=== PATIENT | female | born 1935 | race Caucasian/White ===

== ENCOUNTER → 2017-12-15 00:52 | Outpatient (CLI) | payer MEDICARE, OTHER, SELFPAY ==
[2017-12-15 13:07] LABS: INR 2.3 (1.0-3.5); Prothrombin Time 21.5 sec (9.3-10.8)
== END ==
PROVIDERS: PCP General Practice; Visit Provider General Practice
DX: I82.221 Chronic embolism and thrombosis of inferior vena cava (principal); Z79.01 Long term (current) use of anticoagulants
CPT/HCPCS: 36415; 85610

== ENCOUNTER → 2018-01-03 01:46 | Outpatient (CLI) | payer MEDICARE, OTHER, SELFPAY ==
[2018-01-03 13:05] LABS: Anion Gap 8.7 mmol/L (3-11); BUN 19 mg/dL (7-18); CO2 28.3 mmol/L (21.0-32.0); CREATININE 1.16 mg/dL (0.55-1.02); Chloride 102 mmol/L (98-107); Estimated GFR 44.73 (mL/min/1.73m2); Glucose 95 mg/dL (70-100); Potassium 4.2 mmol/L (3.5-5.1); Sodium 139 mmol/L (136-145)
== END ==
PROVIDERS: PCP General Practice; Visit Provider General Practice
DX: R73.03 Prediabetes (principal)
CPT/HCPCS: 36415; 80051; 82947; 84520; 82565

== ENCOUNTER → 2018-01-04 01:33 | Outpatient (CLI) | payer MEDICARE, OTHER, SELFPAY ==
--- NOTE | 2018-01-04 14:54 | DI.REPORT_ITS ---
SYMPTOMS/DIAGNOSIS: SCREENING, Z12.31 MAMMOGRAM: Mammograms were interpreted according to the usual protocol including computer analysis with CAD system, tomosynthesis and C view imaging. The breasts are of moderate density with fairly symmetrical distribution of fibroglandular tissue. No dominant mass or clumped microcalcification is identified in either breast. The current examination is compared with previous examinations including June 2015 and there has been no gross interval change in appearance in comparison with the previous studies. CONCLUSION: No specific evidence of malignancy at this time. Routine screening examinations are suggested at yearly intervals due to the family history of breast carcinoma. Category I. Breast density B. MQSA ASSESSMENT OF FINDINGS: Negative. Category 1. Patient will receive a letter notifying them of these results. BI-RADS category B. There are scattered areas of fibroglandular density.
== END ==
PROVIDERS: PCP General Practice; Visit Provider General Practice
DX: Z12.31 Encounter for screening mammogram for malignant neoplasm of breast (principal); Z80.3 Family history of malignant neoplasm of breast
CPT/HCPCS: 77063; 77067

== ENCOUNTER 2018-01-29 01:30 | Outpatient (CLI) | payer MEDICARE, OTHER, SELFPAY ==
[2018-01-29 12:38] LABS: Prothrombin Time 19.5 sec (9.3-10.8)
== END 2018-01-29 01:50 ==
PROVIDERS: PCP General Practice; Visit Provider General Practice
DX: I82.221 Chronic embolism and thrombosis of inferior vena cava (principal); Z79.01 Long term (current) use of anticoagulants
CPT/HCPCS: 36415; 85610

== ENCOUNTER 2018-03-08 01:00 | Outpatient (CLI) | payer MEDICARE, OTHER, SELFPAY ==
[2018-03-08 10:54] LABS: INR 1.7 (1.0-3.5); Prothrombin Time 16.1 sec (9.3-10.8)
== END 2018-03-08 01:20 ==
PROVIDERS: PCP General Practice; Visit Provider General Practice
DX: I82.221 Chronic embolism and thrombosis of inferior vena cava (principal); Z79.01 Long term (current) use of anticoagulants
CPT/HCPCS: 36415; 85610

== ENCOUNTER 2018-03-22 01:06 | Outpatient (CLI) | payer MEDICARE, OTHER, SELFPAY ==
[2018-03-22 13:08] LABS: INR 2.2 (1.0-3.5); Prothrombin Time 21.1 sec (9.3-10.8)
== END 2018-03-22 01:26 ==
PROVIDERS: PCP General Practice; Visit Provider General Practice
DX: I82.221 Chronic embolism and thrombosis of inferior vena cava (principal); Z79.01 Long term (current) use of anticoagulants
CPT/HCPCS: 36415; 85610

== ENCOUNTER 2018-04-26 02:04 | Outpatient (CLI) | payer MEDICARE, OTHER, SELFPAY ==
[2018-04-26 13:02] LABS: Prothrombin Time 20.2 sec (9.3-10.8)
[2018-04-26 13:06] LABS: INR 2.1 (1.0-3.5)
== END 2018-04-26 02:24 ==
PROVIDERS: PCP General Practice; Visit Provider General Practice
DX: I82.221 Chronic embolism and thrombosis of inferior vena cava (principal); Z79.01 Long term (current) use of anticoagulants
CPT/HCPCS: 36415; 85610

== ENCOUNTER 2018-05-29 02:03 | Outpatient (CLI) | payer MEDICARE, OTHER, SELFPAY ==
[2018-05-29 16:41] LABS: INR 1.4 (0.9-1.1); Prothrombin Time 14.5 sec (9.3-11.0)
== END 2018-05-29 02:23 ==
PROVIDERS: PCP General Practice; Visit Provider General Practice
DX: I82.221 Chronic embolism and thrombosis of inferior vena cava (principal); Z79.01 Long term (current) use of anticoagulants
CPT/HCPCS: 36415; 85610

== ENCOUNTER 2018-06-25 02:48 | Outpatient (CLI) | payer MEDICARE, OTHER, SELFPAY ==
[2018-06-25 12:37] LABS: INR 2.3 (0.9-1.1); Prothrombin Time 22.8 sec (9.3-11.0)
== END 2018-06-25 03:08 ==
PROVIDERS: PCP General Practice; Visit Provider General Practice
DX: I82.221 Chronic embolism and thrombosis of inferior vena cava (principal); Z79.01 Long term (current) use of anticoagulants
CPT/HCPCS: 36415; 85610

== ENCOUNTER 2018-07-25 03:05 | Outpatient (CLI) | payer MEDICARE, OTHER, SELFPAY ==
[2018-07-25 13:53] LABS: INR 1.9 (0.9-1.1); Prothrombin Time 19.2 sec (9.3-11.0)
== END 2018-07-25 03:25 ==
PROVIDERS: PCP General Practice; Visit Provider General Practice
DX: I82.221 Chronic embolism and thrombosis of inferior vena cava (principal); Z79.01 Long term (current) use of anticoagulants
CPT/HCPCS: 36415; 85610

== ENCOUNTER 2018-08-10 14:42 | Outpatient (REF) | payer MEDICARE, OTHER, SELFPAY ==
--- NOTE | 2018-08-10 12:45 | SKI_PTH ---
PATIENT: Cheryl Samuels LOC: [facility] U#:[id number] AGE/SX: 82/F ROOM: RE08/10/[address]: Sp Valles : 1935 BED: DIS: 08/10/2018 SPEC #: [id number] RECD: 08/10/18 17:46 STATUS: JOSEPH REPastor #: [id number] KIN: 08/10/18 12:[address]: Sp Valles DEPT: Surgical Specimen RECD BY: Rita Felder Tissues: 1 - SKIN BIOPSY(SHAVE/PUNCH) Procedures: SKIN LEVEL 4 Comments: [id number]
== END 2018-08-10 15:02 ==
LOC: LBN 14:42
PROVIDERS: PCP General Practice; Visit Provider General Practice
DX: L13.8 Other specified bullous disorders (principal); L30.8 Other specified dermatitis
CPT/HCPCS: 88305

== ENCOUNTER 2018-08-29 00:51 | Outpatient (CLI) | payer MEDICARE, OTHER, SELFPAY ==
[2018-08-29 12:44] LABS: INR 2.4 (0.9-1.1); Prothrombin Time 24.2 sec (9.3-11.0)
== END 2018-08-29 01:11 ==
PROVIDERS: PCP General Practice; Visit Provider General Practice
DX: I82.221 Chronic embolism and thrombosis of inferior vena cava (principal); Z79.01 Long term (current) use of anticoagulants
CPT/HCPCS: 36415; 85610

== ENCOUNTER 2018-09-28 02:38 | Outpatient (CLI) | payer MEDICARE, OTHER, SELFPAY ==
[2018-09-28 12:42] LABS: Prothrombin Time 20.6 sec (9.3-11.0)
== END 2018-09-28 02:58 ==
PROVIDERS: PCP General Practice; Visit Provider General Practice
DX: I82.221 Chronic embolism and thrombosis of inferior vena cava (principal); Z79.01 Long term (current) use of anticoagulants
CPT/HCPCS: 36415; 85610

== ENCOUNTER 2018-11-09 02:03 | Outpatient (CLI) | payer MEDICARE, OTHER, SELFPAY ==
[2018-11-09 13:05] LABS: INR 1.6 (0.9-1.1); Prothrombin Time 15.9 sec (9.3-11.0)
== END 2018-11-09 02:23 ==
PROVIDERS: PCP General Practice; Visit Provider General Practice
DX: I82.221 Chronic embolism and thrombosis of inferior vena cava (principal); Z79.01 Long term (current) use of anticoagulants
CPT/HCPCS: 36415; 85610

== ENCOUNTER 2018-12-05 01:44 | Outpatient (CLI) | payer MEDICARE, OTHER, SELFPAY ==
[2018-12-05 12:59] LABS: INR 1.9 (0.9-1.1)
== END 2018-12-05 02:04 ==
PROVIDERS: PCP General Practice; Visit Provider General Practice
DX: I82.91 Chronic embolism and thrombosis of unspecified vein (principal); Z79.01 Long term (current) use of anticoagulants
CPT/HCPCS: 36415; 85610

== ENCOUNTER 2018-12-20 02:19 | Outpatient (CLI) | payer MEDICARE, OTHER, SELFPAY ==
[2018-12-20 13:28] LABS: INR 1.7 (0.9-1.1); Prothrombin Time 16.8 sec (9.3-11.0)
== END 2018-12-20 02:39 ==
PROVIDERS: PCP General Practice; Visit Provider General Practice
DX: I82.221 Chronic embolism and thrombosis of inferior vena cava (principal); Z79.01 Long term (current) use of anticoagulants
CPT/HCPCS: 36415; 85610

== ENCOUNTER 2019-01-03 02:24 | Outpatient (CLI) | payer MEDICARE, OTHER, SELFPAY ==
[2019-01-03 13:18] LABS: INR 2.9 (0.9-1.1); Prothrombin Time 29.6 sec (9.3-11.0)
== END 2019-01-03 02:44 ==
PROVIDERS: PCP General Practice; Visit Provider General Practice
DX: I82.221 Chronic embolism and thrombosis of inferior vena cava (principal); Z79.01 Long term (current) use of anticoagulants
CPT/HCPCS: 36415; 85610

== ENCOUNTER 2019-02-08 02:40 | Outpatient (CLI) | payer MEDICARE, OTHER, SELFPAY ==
[2019-02-08 13:12] LABS: INR 2.9 (0.9-1.1); Prothrombin Time 28.5 sec (9.3-11.0)
== END 2019-02-08 03:00 ==
PROVIDERS: PCP General Practice; Visit Provider General Practice
DX: I82.221 Chronic embolism and thrombosis of inferior vena cava (principal); Z79.01 Long term (current) use of anticoagulants
CPT/HCPCS: 36415; 85610

== ENCOUNTER 2019-03-07 01:46 | Outpatient (CLI) | payer MEDICARE, OTHER, SELFPAY ==
[2019-03-07 14:21] LABS: INR 2.5 (0.9-1.1)
== END 2019-03-07 02:06 ==
PROVIDERS: PCP Nurse Practitioner; Visit Provider General Practice
DX: I82.221 Chronic embolism and thrombosis of inferior vena cava (principal); Z79.01 Long term (current) use of anticoagulants
CPT/HCPCS: 36415; 85610

== ENCOUNTER 2019-04-03 00:37 | Outpatient (CLI) | payer MEDICARE, OTHER, SELFPAY ==
--- NOTE | 2019-04-03 13:04 | DI.MAMMO_ITS ---
EXAM: MG MAMMO SCREENING CLINICAL HISTORY: SCREENING, TECHNIQUE: Mammograms were interpreted according to the usual protocol including computer analysis w [employer] CAD system, tomosynthesis and C-view imaging. COMPARISON: [id number] FINDINGS: The breasts are composed of scattered fibroglandular densities, breast density category B. There are no suspicious masses or suspicious microcalcifications. There has been no interval change when ralph red with the previous examinations. IMPRESSION: Category 1, negative mammogram. Yearly screening mammography is recommended. BI-RADS Cat 1 - Negative Breast Density - Category B - Scattered areas of fibroglandular density
== END 2019-04-03 00:57 ==
PROVIDERS: PCP Nurse Practitioner; Visit Provider General Practice
DX: Z12.31 Encounter for screening mammogram for malignant neoplasm of breast (principal)
CPT/HCPCS: 77063; 77067

== ENCOUNTER 2019-04-03 01:30 | Outpatient (CLI) | payer MEDICARE, OTHER, SELFPAY ==
[2019-04-03 14:04] LABS: INR 2.4 (0.9-1.1); Prothrombin Time 23.4 sec (9.3-11.0)
[2019-04-03 14:59] LABS: Anion Gap 6.9 mmol/L (3-11); BUN 19 mg/dL (7-18); CO2 31.1 mmol/L (21.0-32.0); CREATININE 0.99 mg/dL (0.55-1.02); Chloride 103 mmol/L (98-107); Estimated GFR 53.57 (mL/min/1.73m2); Potassium 3.8 mmol/L (3.5-5.1); Sodium 141 mmol/L (136-145)
== END 2019-04-03 01:50 ==
PROVIDERS: PCP Nurse Practitioner; Visit Provider General Practice
DX: I82.221 Chronic embolism and thrombosis of inferior vena cava (principal); Z79.01 Long term (current) use of anticoagulants; I10 Essential (primary) hypertension
CPT/HCPCS: 36415; 80051; 84520; 82565; 85610

== ENCOUNTER 2019-05-23 13:00 | Outpatient (CLI) | payer MEDICARE, OTHER, SELFPAY ==
[2019-05-23 13:39] LABS: INR 2.2 (0.9-1.1); Prothrombin Time 21.6 sec (9.3-11.0)
== END 2019-05-23 13:20 ==
PROVIDERS: PCP Nurse Practitioner; Visit Provider Nurse Practitioner
DX: I48.91 Unspecified atrial fibrillation (principal); Z79.01 Long term (current) use of anticoagulants
CPT/HCPCS: 36415; 85610

== ENCOUNTER 2019-07-04 00:07 | Outpatient (CLI) | payer MEDICARE, OTHER, SELFPAY ==
[2019-07-04 14:45] LABS: INR 3.9 (0.9-1.1); Prothrombin Time 37.5 sec (9.3-11.0)
== END 2019-07-04 00:27 ==
PROVIDERS: PCP Nurse Practitioner; Visit Provider Nurse Practitioner
DX: I48.91 Unspecified atrial fibrillation (principal); I82.221 Chronic embolism and thrombosis of inferior vena cava; Z79.01 Long term (current) use of anticoagulants
CPT/HCPCS: 36415; 85610

== ENCOUNTER 2019-07-15 02:07 | Outpatient (CLI) | payer MEDICARE, OTHER, SELFPAY ==
[2019-07-15 13:19] LABS: INR 1.3 (0.9-1.1); Prothrombin Time 12.7 sec (9.3-11.0)
== END 2019-07-15 02:27 ==
PROVIDERS: PCP Nurse Practitioner; Visit Provider Nurse Practitioner
DX: I82.221 Chronic embolism and thrombosis of inferior vena cava (principal); Z79.01 Long term (current) use of anticoagulants
CPT/HCPCS: 36415; 85610

== ENCOUNTER 2019-07-22 01:54 | Outpatient (CLI) | payer MEDICARE, OTHER, SELFPAY ==
[2019-07-22 13:31] LABS: INR 1.8 (0.9-1.1); Prothrombin Time 17.9 sec (9.3-11.0)
== END 2019-07-22 02:14 ==
PROVIDERS: PCP Nurse Practitioner; Visit Provider Nurse Practitioner
DX: I82.221 Chronic embolism and thrombosis of inferior vena cava (principal); Z79.01 Long term (current) use of anticoagulants
CPT/HCPCS: 36415; 85610

== ENCOUNTER 2019-07-31 02:55 | Outpatient (CLI) | payer MEDICARE, OTHER, SELFPAY ==
[2019-07-31 12:38] LABS: INR 2.3 (0.9-1.1)
== END 2019-07-31 03:15 ==
PROVIDERS: PCP Nurse Practitioner; Visit Provider Nurse Practitioner
DX: I82.221 Chronic embolism and thrombosis of inferior vena cava (principal); Z79.01 Long term (current) use of anticoagulants
CPT/HCPCS: 36415; 85610

== ENCOUNTER 2019-08-14 00:38 | Outpatient (CLI) | payer MEDICARE, OTHER, SELFPAY ==
[2019-08-14 14:06] LABS: INR 1.5 (0.9-1.1); Prothrombin Time 14.9 sec (9.3-11.0)
== END 2019-08-14 00:58 ==
PROVIDERS: PCP Nurse Practitioner; Visit Provider Nurse Practitioner
DX: I48.91 Unspecified atrial fibrillation (principal); I82.221 Chronic embolism and thrombosis of inferior vena cava; Z79.01 Long term (current) use of anticoagulants
CPT/HCPCS: 36415; 85610

== ENCOUNTER 2019-08-21 01:10 | Outpatient (CLI) | payer MEDICARE, OTHER, SELFPAY ==
[2019-08-21 15:56] LABS: Prothrombin Time 19.7 sec (9.3-11.0)
== END 2019-08-21 01:30 ==
PROVIDERS: PCP Nurse Practitioner; Visit Provider Nurse Practitioner
DX: I48.91 Unspecified atrial fibrillation (principal); I82.221 Chronic embolism and thrombosis of inferior vena cava; Z79.01 Long term (current) use of anticoagulants
CPT/HCPCS: 36415; 85610

== ENCOUNTER 2019-09-06 03:01 | Outpatient (CLI) | payer MEDICARE, OTHER, SELFPAY ==
[2019-09-06 15:30] LABS: HCT 41.7 % (36.0-46.0); HGB 13.7 g/dL (12.0-15.5); Mean Corp. HGB Concentration 32.9 g/dL (32.0-36.0); Mean Corpuscular Hemoglobin 29.8 pg (27.0-33.0); Mean Corpuscular Volume 90.8 fL (80-95); Mean Platelet Volume 11.3 fL (8.0-11.0); Platelet Count 193 x1000/uL (130-400); RBC 4.59 m/cumm (4.00-5.20); RBC Distribution Width 13.9 % (11.7-14.6); White Blood Cell Count 6.69 k/cumm (4.4-10.8)
[2019-09-06 15:40] LABS: INR 1.9 (0.9-1.1); Prothrombin Time 18.4 sec (9.3-11.0)
[2019-09-06 16:39] LABS: TSH 2.64 uIU/mL (0.36-3.74)
== END 2019-09-06 03:21 ==
PROVIDERS: PCP Nurse Practitioner; Visit Provider Nurse Practitioner
DX: I10 Essential (primary) hypertension (principal); R53.83 Other fatigue; I48.91 Unspecified atrial fibrillation; I82.221 Chronic embolism and thrombosis of inferior vena cava; Z79.01 Long term (current) use of anticoagulants
CPT/HCPCS: 36415; 85027; 84443; 85610

== ENCOUNTER 2020-05-29 04:18 | Outpatient (CLI) | payer MEDICARE, OTHER, SELFPAY ==
--- NOTE | 2020-05-29 14:42 | DI.MAMMO_ITS ---
EXAM: MG MAMMO SCREENING CLINICAL HISTORY: screening,Z12.39. TECHNIQUE: Bilateral full field digital CC and MLO mammographic images were obtained with 3D tomosyn thesis and utilizing computer aided detection (CAD). COMPARISON: Prior mammograms dating back to 2012, the most recent being March 2019. FINDINGS: Benign-appearing lymph noted in the upper outer quadrant of the right breast is unchanged from 2012. There are no spiculated masses nor malignant appearing microcalcification groups. There is no signif icant architectural distortion nor skin thickening-retraction. IMPRESSION: No radiographic evidence of malignancy. BI-RADS Category 1 - Negative Breast Density - Category B - Scattered areas of fibroglandular density Breast density Category C or D implies that the patient has dense breast tissue. Dense breast tissue can make it harder to find cancer on a mammogram. Dense breast tissue is also associated with an incr eased risk of breast cancer. This information about the result of the mammogram report was provided to the patient to raise their awareness. Use this report when you speak with the patient about their risks for breast cancer, which includes their family history. At that time, you may recommend additional screening tests (Ultrasoun d or MRI) as these tests may add significant information. A negative radiographic report should not delay biopsy if a dominant or clinically suspicious mass is present. Up to ten percent of cancers are not identified on mammography. A negative report may reinforce clinical impression. Adenosis and dense breasts may obscure an underlying neoplasm. False positive reports average 6 to 10%. Patient will receive a letter notifying them of these results.
== END 2020-05-29 04:38 ==
PROVIDERS: PCP Nurse Practitioner; Visit Provider Nurse Practitioner
DX: Z12.31 Encounter for screening mammogram for malignant neoplasm of breast (principal)
CPT/HCPCS: 77063; 77067

== ENCOUNTER 2020-07-06 02:51 | Outpatient (CLI) | payer MEDICARE, OTHER, SELFPAY ==
[2020-07-06 12:28] LABS: Estimated GFR 52.82 (mL/min/1.73m2); Potassium 3.7 mmol/L (3.5-5.1)
[2020-07-06 12:45] LABS: TSH (W/Ref FT4) 2.42 uIU/mL (0.36-3.74)
[2020-07-06 12:54] LABS: Hemoglobin A1C 6.1 % (<5.7)
== END 2020-07-06 02:52 | disposition home or self-care (01) ==
LOC: LOS 02:52
PROVIDERS: Otolaryngology Otolaryngology/Facial Plastic Surgery; PCP Nurse Practitioner; Visit Provider Nurse Practitioner
DX: R73.03 Prediabetes (principal); I10 Essential (primary) hypertension
CPT/HCPCS: 36415; 82565; 83036; 84132; 84443

== ENCOUNTER 2020-08-21 03:40 | Outpatient (CLI) | payer MEDICARE, OTHER, SELFPAY ==
--- NOTE | 2020-08-21 07:15 | DI.RAD_ITS ---
EXAM: XR SHOULDER LT COMPLETE 2+V CLINICAL HISTORY: shoulder pain, PT no help,M25.512. TECHNIQUE: 2D digital imaging was performed. COMPARISON: No exams were available for comparison FINDINGS: There are marked degenerative changes of the glenohumeral joint with joint space narrowing, subchondr al sclerosis and cysts and periarticular spurring. Mild degenerative changes are seen at the acromio clavicular joint. No acute fracture or dislocation is seen in the soft tissues are unremarkable IMPRESSION: Marked osteoarthritis of the left shoulder. DATA REPOSITORY: RADIATION DOSE DELIVERED:
== END 2020-08-21 04:00 ==
PROVIDERS: PCP Nurse Practitioner; Visit Provider Nurse Practitioner
DX: M25.512 Pain in left shoulder (principal); M19.012 Primary osteoarthritis, left shoulder
CPT/HCPCS: 73030

== ENCOUNTER 2020-08-31 10:24 | Day surgery (SDC) | payer MEDICARE, OTHER, SELFPAY ==
[2020-08-31] MEDS: Tropicam./Phenyleph. (1/2.5%) 5 ML BTL OD ×3 (10:56→11:09)
[2020-08-31 11:03] VITALS: BP 141/68; PULSE 64; RESP 18; TEMP 36.2; O2SAT 98
[2020-08-31] MEDS: Trypan Blue 0.06% 0.5 ML SYR (12:17)
[2020-08-31] MEDS: Tetracaine 0.5% 4 ML BTL OD (12:18)
[2020-08-31] MEDS: Duovisc Viscoelastic System EACH 1 EACH (12:19)
[2020-08-31] MEDS: Balanced Salt Soln.-PLUS 500 ML BAG (12:19)
[2020-08-31] MEDS: Lidocaine 1% Pres-Free 5 ML VIAL (12:20)
[2020-08-31] MEDS: Lidocaine 2% Jelly 6 ML SYR (12:20)
[2020-08-31] MEDS: Povidone-Iodine Ophth 30 ML BTL (12:21)
--- NOTE | 2020-08-31 12:40 | W.PM.DSUDISC ---
Discharge Plan Disposition Patient Disposition: HOME Condition: Good Discharge Details Attending Provider: Scout Johansen Primary Care Provider: Lizbet Salamanca Home Meds and New Rx's Prescriptions: No Action furosemide [Lasix] 20 mg tablet 20 mg PO DAILY PRN (Reason: edema) Qty: 90 RF: 4 tcrfeudbjlm-pytnkjeme-gda C-Mn [Glucosamine Chondroitin MaxStr] 500-400 mg capsule 1 cap PO DAILY RF: 0 bupropion HCl 200 mg tablet sustained-release 12 hr 200 mg PO DAILY Qty: 90 RF: 3 famotidine 20 mg tablet 20 mg PO BID PRNRF: 0 prochlorperazine maleate [Compazine] 5 mg tablet 5 mg PO BID PRN (Reason: nausea and vomiting) Qty: 30 RF: 0 warfarin 5 mg tablet 5 mg PO 5XW Qty: 180 RF: 3 amlodipine 5 mg tablet 5 mg PO DAILY Qty: 90 RF: 3 atenolol 50 mg tablet 50 mg PO HS Qty: 90 RF: 4 calcium carbonate-vitamin D3 [Calcium 600 + D(3)] 1 EACH tablet 1 cap PO BID RF: 0 Centrum Silver 1 EACH tablet 1 tab PO DAILY RF: 0 Discharge Instructions Stand Alone Forms: Post-op Topical Cataract, [facility] (DSU) Discharge Orders Discharge Orders: Discharge Order (Routine); Ordered 08/31/20 Ordered By: Scout Johansen DS: Diagnosis Discharge Diagnosis (1) Nuclear sclerotic cataract of right eye: Status: Resolved
--- NOTE | 2020-08-31 12:41 | W.PM.OP ---
Date of service: 08/31/20 Time of Service: 12:41 Operative Note Operative Note DATE OF PROCEDURE: 08/31/20 PRE-OP DIAGNOSIS: Dense nuclear cataract, right eye Poor red reflex secondary to dense cataract POST-OP DIAGNOSIS: same PROCEDURE: Cataract extraction using phacoemulsification with intraocular lens implantation, right eye, using capsular staining with Vision Blue SURGEON: Scout Johansen Refer to Anesthesia Record PATHOLOGY: none sent COMPLICATIONS: None Patient was transported to: same day Patient's condition: stable Implants: Devyn [employer] Devyn / [employer] Tecnis [id number] Indications: Progressive visual loss due to cataract, right eye Procedure Description: CATARACT SURGERY OPERATIVE REPORT PREOPERATIVE DIAGNOSIS: 1. Dense nuclear cataract, right eye 2. Poor red reflex secondary to #1 POSTOPERATIVE DIAGNOSIS: Same OPERATION: 1. Cataract extraction using phacoemulsification with posterior chamber intraocular lens implant, right eye. 2. Capsular staining with Vision Blue IOL: IOL Animal Pathologist/Model: Devyn & Devyn / BETTYE Tecnis [id number] IOL Power: + 24.0 diopters IOL Serial Number: [id number] Optic Diameter: 6.0mm Haptic/Overall Diameter: 13.0mm PHACO INFO: Gabriel [employer]ur[employer] Vision System with OZil and [employer]uidics Cumulative Dispersed Energy (CDE): 18.77 seconds SURGEON: Scout Johansen MD, TED ANESTHESIA: Monitored Anesthesia Care (MAC), with local sub-tenon's anesthetic infiltration COMPLICATIONS: None SPECIMENS: None INDICATIONS FOR PROCEDURE: The patient is an 84-year-old lady with history of 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 The option of cataract surgery was offered to the patient and she wished to proceed. PROCEDURE: The correct surgical eye was identified and marked as the right eye and the pupil was dilated in the preoperative area using mydriatics and cycloplegics. The dilated pupil size was 7.0 mm. She elected to proceed without oral sedation. the patient was brought to the operating room where cardiopulmonary monitoring was instituted and surgical time-out was performed, confirming the correct operative eye and IOL power. Topical anesthesia was administered and ophthalmic povidone-iodine 5% was instilled into the conjunctival fornices. Lidocaine gel was applied to the cornea and the suhk-ocular area was prepped with Betadine 10% solution and draped in the usual sterile fashion for intraocular surgery, including an aperture drape. A Tegaderm transparent film dressing was cut in half and used to cover the lashes and lid margins. Care was taken to sequester the lashes and lid margins under the Tegaderm dressing. A lid speculum was placed between the lids of the operative eye and the Chris-Na operating microscope was maneuvered into position. Suman scissors were then used to make a conjunctival buttonhole approximately 6mm posterior to the limbus in the inferonasal quadrant. Blunt dissection was carried out to expose bare sclera, and a blunt-tipped sub-tenon?s anesthesia cannula was introduced and passed posteriorly along the globe where non-preserved plain lidocaine was injected into posterior sub-Tenon?s space. A sideport knife was used to make a paracentesis port inferotemporally. Intraocular phenylephrine/lidocaine was injected into the anterior chamber. Air was injected into the anterior chamber, followed by Vision Blue, which was painted over the anterior capsule and then irrigated out with BSS. The anterior chamber was filled with viscoelastic. A 2.4mm keratome knife was used to create a half-thickness groove at the limbus and then to construct a three-plane near-clear corneal tunnel extending 2.0mm into clear cornea superiortemporally. A flap was raised on the anterior capsule and capsulorhexis forceps were used to complete a continuous curvilinear capsulorhexis of 5.5 mm. Balanced salt solution was then used to perform cortical cleaving hydrodissection and nuclear hydrodelineation until the lens could be freely rotated within the capsular bag. The lens nucleus was then disassembled and removed within the capsular bag and iris plane using phacoemulsification. Residual cortical material was removed using the I/A handpiece. The posterior capsule was carefully polished to remove as much residual lens epithelial cells as safely possible. The capsular bag was then inflated and the anterior chamber deepened with viscoelastic. The lens implant described above was inserted into the capsular bag using the BETTYE Lorida Injector. A Kuglen hook was used to dial the IOL into position. Residual viscoelastic was then removed first from posterior to the IOL, then from the anterior chamber using the I/A handpiece. The lens implant was noted to center nicely within the capsular bag. The incisions were stromally hydrated, and the anterior chamber was reformed using BSS. Then 0.5cc of moxifloxacin 1.0mg/ml were injected into the capsular bag and anterior chamber. The incisions were checked with a Weck spear and found to be secure. Several drops of ophthalmic povidone-iodine 5% were then applied to the eye followed by two drops of Imprimis combination prednisolone/moxifloxacin/nepafenac solution. The drapes were removed and a clear plastic protective eye shield was placed over the eye. The patient was then returned to [facility] in stable condition.
== END 2020-08-31 13:05 | disposition home or self-care (01) ==
PROVIDERS: PCP Nurse Practitioner; Visit Provider Ophthalmology
PROC: (CPT 66982; principal; 2020-08-31 13:30)
DX: H25.11 Age-related nuclear cataract, right eye (principal); H35.89 Other specified retinal disorders
CPT/HCPCS: 66982; V2632

== ENCOUNTER 2020-09-14 09:55 | Day surgery (SDC) | payer MEDICARE, OTHER, SELFPAY ==
--- NOTE | 2020-09-14 07:41 | W.ANESPRE ---
General Info Date of Service Date Performed: 09/14/20 Height: 4 ft 11 in Weight: 77.4 kg Body Mass Index (BMI): 34.4 Surgical Procedure: Operation Date: 09/14/20 11:40 Proposed Procedures Side Surgeon p Cataract Extraction with IOL Implant Left Scout Johansen MD Meds Allergies and Home Medications Allergies Allergy/AdvReac Type Severity Reaction Status Date / Time No Known Allergies Allergy Verified 09/10/20 14:52 Home Medication Medication Instructions Recorded calcium carbonate-vitamin D3 1 cap PO BID 03/21/14 [Calcium 600 + Vit D Caplet] ctnwszgb-atr-XA-lycopen-lutein 1 tab PO DAILY 03/21/14 [Centrum Silver Tablet] warfarin 5 mg tablet 5 mg PO 5XW #180 tab 10/29/19 amlodipine 5 mg tablet 5 mg PO DAILY #90 tab 12/23/19 bupropion HCl 200 mg tablet,12 hr 200 mg PO DAILY #90 tab 01/14/20 sustained-release hchiqfocihm-asuyowknx-izm C-Mn 500 1 cap PO DAILY 01/14/20 mg-400 mg capsule famotidine 20 mg tablet 20 mg PO BID PRN 03/12/20 prochlorperazine maleate 5 mg 5 mg PO BID PRN #30 tab 03/12/20 tablet atenolol 50 mg tablet 50 mg PO HS #90 tab 08/27/20 furosemide [Lasix] 20 mg PO DAILY 09/14/20 Current Visit Medications: Current Medications Generic Name Dose Route Start Last Admin Trade Name Freq PRN Reason Stop Dose Admin Acetaminophen 1,000 mg 09/14/20 06:00 Acetaminophen 500 Mg Tab PO Q4H PRN PRN Miscellaneous Medication 0 ml 09/14/20 06:00 Prednisolone 1%, Moxifloxacin 0.5%, Nepafenac 0.1% 5ml Btl OS DIRECTED JESUS Miscellaneous Medication 0 ml 09/14/20 06:00 Tropicam./Phenyleph. (1/2.5%) 10 Ml Btl OS DIRECTED JESUS Tetracaine HCl 0 ml 09/14/20 06:00 Tetracaine 0.5% 4 Ml Btl OS DIRECTED JESUS PFSH Active Problems Active Problems: Problem Status Onset Code Nuclear sclerotic cataract of left eye H25.12 Prediabetes R73.03 Depression F32.9 Cataract H26.9 Edema R60.9 Chronic cough R05 Gastroesophageal reflux disease K21.9 Osteoporosis M81.0 Peripheral neuropathy G62.9 HTN (hypertension) I10 Chronic anticoagulation Z79.01 A-fib I48.91 Medical History Medical History Dysphonia allergy related Globus sensation 12/2019- seen by Dr. Broderick at [facility], History of DVT (deep vein thrombosis) Surgical History Surgical History (Updated 09/14/20 @ 10:18 by Whitney Olivera) Hx of cataract surgery Open Carpal Tunnel release (09/15/15) RIGHT SIDE/DR. KING Tobacco Smoking/Tobacco Use Status: Never Passive smoking exposure: Yes Alcohol Alcohol Intake: never Substance Use Substance use: Never Substance use type: does not use Vital Signs and Lab Results Vital Signs Most Recent Vital Signs in EMR: Temp Pulse Resp BP Pulse Ox 36.5 C 69 16 137/67 95 09/14/20 10:22 09/14/20 10:22 09/14/20 10:22 09/14/20 10:22 09/14/20 10:22 Lab Results Blood Type / Crossmatch: No Data to Display Complete Blood Count: White Blood Count 6.69 k/cumm (4.4-10.8) 09/06/19 15:25 09/06/19 Red Blood Count 4.59 m/cumm (4.00-5.20) 09/06/19 15:25 09/06/19 Hemoglobin 13.7 g/dL (12.0-15.5) 09/06/19 15:25 09/06/19 Hematocrit 41.7 % (36.0-46.0) 09/06/19 15:25 09/06/19 Platelet Count 193 x1000/uL (130-400) 09/06/19 15:25 09/06/19 Complete Metabolic Panel: Sodium Level 141 mmol/L (136-145) 04/03/19 13:15 04/03/19 Potassium Level 3.7 mmol/L (3.5-5.1) 07/06/20 10:38 07/06/20 Chloride Level 103 mmol/L (98-107) 04/03/19 13:15 04/03/19 Carbon Dioxide Level 31.1 mmol/L (21.0-32.0) 04/03/19 13:15 04/03/19 Blood Urea Nitrogen 19 mg/dL (7-18) H 04/03/19 13:15 04/03/19 Creatinine 1.0 mg/dL (0.55-1.02) 07/06/20 10:38 07/06/20 Magnesium Level 1.9 mg/dL (1.8-2.4) 03/21/14 16:35 03/21/14 Calcium Level 9.2 mg/dL (8.5-10.1) 03/21/14 16:35 03/21/14 Albumin 3.6 g/dL (3.4-5.0) 03/21/14 16:35 03/21/14 Glucose Level 95 mg/dL (70-100) 01/03/18 09:57 01/03/18 Hemoglobin A1c 6.1 % (<5.7) H 07/06/20 10:38 07/06/20 Liver Function Panel: Alanine Aminotransferase (ALT/SGPT) 29 U/L (12-78) 03/21/14 16:35 03/21/14 Aspartate Amino Transf (AST/SGOT) 26 U/L (15-37) 03/21/14 16:35 03/21/14 Coagulation Panel: INR International Normalized Ratio 2.6 (0.9-1.1) H 09/10/20 14:31 09/10/20 Prothrombin Time 18.4 sec (9.3-11.0) H 09/06/19 15:25 09/06/19 Activated Partial Thromboplast Time 33.9 sec (21.7-31.4) H 03/21/14 16:35 03/21/14 D-Dimer 951 ng/mlFEU (45-500) H 03/21/14 16:35 03/21/14 Cardiac Panel: Troponin I < 0.02 ng/mL (0.00-0.06) 05/20/16 13:50 05/20/16 OR-Lxb-Y-Type Natriuretic Peptide 481 pg/mL (-299) H 03/21/14 16:35 03/21/14 Arterial Blood Gas: No Data to Display Venous Blood Gas: No Data to Display Pancreas Panel: No Data to Display Thyroid Panel: Thyroid Stimulating Hormone (TSH) 2.42 uIU/mL (0.36-3.74) 07/06/20 10:38 07/06/20 Infectious Disease: No Data to Display Blood Cultures: No Data to Display Toxicology Panel: No Data to Display Panel: No Data to Display Anesthesia Assessment and Plan Anesthesia History Personal History: No History of Anesthesia Complications Family History: No Family History of Anesthesia Complications Exercise Tolerance Exercise Tolerance: Metabolic Equivalents>4 Pertinent Negatives Pertinent Negatives: No Symptoms of GERD Cardiac & Pulmonary Exam Cardiac Exam: Normal S1/S2 Heart Sounds Pulmonary Exam: Clear Bilateral Breath Sounds Airway Exam Known Difficult Airway: No Mallampati Class: 2 Mouth Opening: Normal (> 3cm) Thyromental Distance: Greater than 3 cm Neck Range of Motion: Full ROM Neck Circumference: Normal Teeth Condition: Normal Dentition ASA Classification ASA Score: ASA 3 ASA Emergency: No NPO Status NPO Status: NPO Clears >2 hours, Solids >8 hours Anesthesia Plan Anesthesia Technique: MAC Anesthesia Airway Planned: Natural Airway Monitors Used: Standard Monitors Preoperative Comments:: previous cat without MKO. no health history change.
--- NOTE | 2020-09-14 07:45 | W.ANESPOSTOP ---
Postoperative Evaluation Date, Time and Location Date Performed: 09/14/20 Time Performed: 12:23 Patient Location: Day Surgery Unit Vital Signs Most Recent Manually Entered Vital Signs: Adult Blood Pressure: 173/84 Heart Rate: 70 Respirations: 16 Oxygen Saturation (%): 96 Temperature (C): 37.2 C Pain Score (0-10 Scale): 0 Assessment Mental Status: Awake (Alert & Oriented to Patient Baseline) Airway and Respiratory Function: Patent airway with normal (patient baseline) respiratory exam Cardiovascular Function: Hemodynamically Stable Hydration Status: Adequately Hydrated Nausea & Vomiting: No Nausea or Vomiting Pain: Pt. Denies Any Pain Peripheral Nerve Block: Patient did not receive a nerve block
[2020-09-14 10:22] VITALS: BP 137/67; PULSE 69; RESP 16; TEMP 36.5; O2SAT 95
[2020-09-14 10:36] VITALS: BMI 34.4
[2020-09-14] MEDS: Tetracaine 0.5% 4 ML BTL OS (11:27)
[2020-09-14] MEDS: Lidocaine 1% Pres-Free 5 ML VIAL (11:28)
[2020-09-14] MEDS: Trypan Blue 0.06% 0.5 ML SYR (11:30)
[2020-09-14] MEDS: Balanced Salt Soln.-PLUS 500 ML BAG (11:31)
[2020-09-14] MEDS: Duovisc Viscoelastic System EACH 1 EACH (11:33)
[2020-09-14] MEDS: Lidocaine 2% Jelly 6 ML SYR (11:34)
[2020-09-14] MEDS: Povidone-Iodine Ophth 30 ML BTL (11:34)
[2020-09-14 11:55] VITALS: BP 152/68; PULSE 70; RESP 16; TEMP 37.2; O2SAT 96
--- NOTE | 2020-09-14 11:55 | W.PM.DSUDISC ---
Discharge Plan Disposition Patient Disposition: HOME Condition: Good Discharge Details Attending Provider: Scout Johansen Primary Care Provider: Lizbet Salamanca Home Meds and New Rx's Prescriptions: No Action dpxzyqykati-hnkfceywu-mvf C-Mn [Glucosamine Chondroitin MaxStr] 500-400 mg capsule 1 cap PO DAILY RF: 0 bupropion HCl 200 mg tablet sustained-release 12 hr 200 mg PO DAILY Qty: 90 RF: 3 famotidine 20 mg tablet 20 mg PO BID PRNRF: 0 prochlorperazine maleate [Compazine] 5 mg tablet 5 mg PO BID PRN (Reason: nausea and vomiting) Qty: 30 RF: 0 warfarin 5 mg tablet 5 mg PO 5XW Qty: 180 RF: 3 amlodipine 5 mg tablet 5 mg PO DAILY Qty: 90 RF: 3 atenolol 50 mg tablet 50 mg PO HS Qty: 90 RF: 4 calcium carbonate-vitamin D3 [Calcium 600 + D(3)] 1 EACH tablet 1 cap PO BID RF: 0 Centrum Silver 1 EACH tablet 1 tab PO DAILY RF: 0 furosemide [Lasix] 20 mg tablet 20 mg PO DAILY RF: 0 Discharge Instructions Stand Alone Forms: Post-op Block Cataract, Post-op Topical Cataract, Press Ganey (DSU) Discharge Orders Discharge Orders: Discharge Order (Routine); Ordered 09/14/20 Ordered By: Scout Johansen DS: Diagnosis Discharge Diagnosis (1) Nuclear sclerotic cataract of left eye: Status: Resolved
--- NOTE | 2020-09-14 11:55 | W.PM.OP ---
Date of service: 09/14/20 Time of Service: 11:55 Operative Note Operative Note DATE OF PROCEDURE: 09/14/20 PRE-OP DIAGNOSIS: Dense nuclear cataract, left eye Poor red reflex, left eye secondary to cataract POST-OP DIAGNOSIS: same PROCEDURE: Cataract extraction using phacoemulsification with intraocular lens implant, left eye, using capsular staining with Vision Blue SURGEON: Scout Johansen ANESTHESIA TYPE: Local By Surgeon and MAC Refer to Anesthesia Record COMPLICATIONS: None Patient was transported to: same day Patient's condition: stable Implants: [employer] / [employer] Tecnis [id number] Indications: Progressive decreased vision due to cataract, left eye, with poor red reflex Procedure Description: CATARACT SURGERY OPERATIVE REPORT PREOPERATIVE DIAGNOSIS: 1. Dense nuclear cataract, left eye 2. Poor red reflex secondary to #1 POSTOPERATIVE DIAGNOSIS: Same OPERATION: 1. Cataract extraction using phacoemulsification with posterior chamber intraocular lens implant, left eye. 2. Capsular staining with Vision Blue IOL: IOL Motion Picture Scene Builder/Model: [employer] Dev[employer] / BETTYE Tecnis [id number] IOL Power: + 21.5 diopters IOL Serial Number: [id number] Optic Diameter: 6.0 mm Haptic/Overall Diameter: 13.0 mm PHACO INFO: [employer] Vision System with OZil and [employer] Cumulative Dispersed Energy (CDE): 28.9 seconds SURGEON: Scout Johansen MD, TED ANESTHESIA: Monitored [facility] (MAC), with local sub-tenon's anesthetic infiltration COMPLICATIONS: None SPECIMENS: None INDICATIONS FOR PROCEDURE: The patient is an 84-year-old lady with history of 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 She has already undergone cataract surgery in the right eye and is doing well postoperatively. She now presents for cataract surgeon the left eye. PROCEDURE: The correct surgical eye was identified and marked as the left eye and the pupil was dilated in the preoperative area using mydriatics and cycloplegics. The dilated pupil size was 8.0 mm. She elected to proceed without sedation. The patient was brought to the operating room where cardiopulmonary monitoring was instituted and surgical time-out was performed, confirming the correct operative eye and IOL power. Topical anesthesia was administered and ophthalmic povidone-iodine 5% was instilled into the conjunctival fornices. Lidocaine gel was applied to the cornea and the sukh-ocular area was prepped with Betadine 10% solution and draped in the usual sterile fashion for intraocular surgery, including an aperture drape. A Tegaderm transparent film dressing was cut in half and used to cover the lashes and lid margins. Care was taken to sequester the lashes and lid margins under the Tegaderm dressing. A lid speculum was placed between the lids of the operative eye and the Chris-Na operating microscope was maneuvered into position. Suman scissors were then used to make a conjunctival buttonhole approximately 6mm posterior to the limbus in the inferonasal quadrant. Blunt dissection was carried out to expose bare sclera, and a blunt-tipped sub-tenon?s anesthesia cannula was introduced and passed posteriorly along the globe where non-preserved plain lidocaine was injected into posterior sub-Tenon?s space. A sideport knife was used to make a paracentesis port superiorly/superiortemporally. Intraocular phenylephrine/lidocaine was injected int the anterior chamber.. Air was then injected into the anterior chamber, followed by Vision Blue, which was painted over the anterior capsule and then irrigated out using BSS. The anterior chamber was filled with viscoelastic. A 2.4mm keratome knife was used to create a half-thickness groove at the limbus and then to construct a three-plane near-clear corneal tunnel extending 2.0mm into clear cornea at the 3:00 position. A flap was raised on the anterior capsule and capsulorhexis forceps were used to complete a continuous curvilinear capsulorhexis of 5.0 mm. Balanced salt solution was then used to perform cortical cleaving hydrodissection and nuclear hydrodelineation until the lens could be freely rotated within the capsular bag. The lens nucleus was then disassembled and removed within the capsular bag and iris plane using phacoemulsification. Additional dispersive viscoelastic was used throughout nucleus removal to protect the corneal endothelium. Residual cortical material was removed using the 45-degree angled silicone I/A tip with 0.3mm port. The posterior capsule was carefully polished to remove as much residual lens epithelial cells as safely possible. The capsular bag was then inflated and the anterior chamber deepened with viscoelastic. The lens implant described above was inserted into the capsular bag using the BETTYE [place] Injector. A Kuglen hook was used to dial the IOL into position. Residual viscoelastic was then removed first from posterior to the IOL, then from the anterior chamber using the I/A handpiece. The lens implant was noted to center nicely within the capsular bag. The incisions were stromally hydrated, and the anterior chamber was reformed using BSS. Then 0.5cc of moxifloxacin 1.0mg/ml were injected into the capsular bag and anterior chamber. The incisions were checked with a Weck spear and found to be secure. Several drops of ophthalmic povidone-iodine 5% were then applied to the eye followed by two drops of Imprimis combination prednisolone/moxifloxacin/nepafenac solution. The drapes were removed and a clear plastic protective eye shield was placed over the eye. The patient was then returned to [facility] in stable condition.
[2020-09-14 12:25] VITALS: BP 173/84; PULSE 70; RESP 16; TEMPC 37.2; O2SAT 96
== END 2020-09-14 12:20 | disposition home or self-care (01) ==
PROVIDERS: PCP Nurse Practitioner; Visit Provider Ophthalmology
PROC: (CPT 66982; principal; 2020-09-14 11:30)
DX: H25.12 Age-related nuclear cataract, left eye (principal); H35.89 Other specified retinal disorders; Z96.1 Presence of intraocular lens; Z98.41 Cataract extraction status, right eye
CPT/HCPCS: 66982; V2632

== ENCOUNTER 2021-07-08 01:30 | Outpatient (CLI) | payer MEDICARE, OTHER, SELFPAY ==
[2021-07-08 14:20] LABS: Hemoglobin A1C 5.8 % (<5.7)
[2021-07-08 15:06] LABS: Anion Gap 8.3 mmol/L (3-11); BUN 17 mg/dL (7-18); CO2 28.7 mmol/L (21.0-32.0); CREATININE 0.9 mg/dL (0.55-1.02); Calcium 9.5 mg/dL (8.5-10.1); Chloride 104 mmol/L (98-107); Estimated GFR 59.51 (mL/min/1.73m2); Glucose 90 mg/dL (74-106); Potassium 4.1 mmol/L (3.5-5.1); Sodium 141 mmol/L (136-145)
== END 2021-07-08 01:31 | disposition home or self-care (01) ==
LOC: LBO 01:31
PROVIDERS: PCP Nurse Practitioner; Visit Provider Nurse Practitioner
DX: R73.03 Prediabetes (principal); I10 Essential (primary) hypertension
CPT/HCPCS: 36415; 80048; 83036

== ENCOUNTER 2021-08-10 06:51 | Emergency (ER) | payer MEDICARE, OTHER, SELFPAY ==
[2021-08-10] VITALS (28 sets, daily range): BP systolic 122–171; BP diastolic 63–100; PULSE 59–84; RESP 15–28; TEMP 36.7–36.9; O2SAT 93–98
--- NOTE | 2021-08-10 06:45 | RT.EKG_ITS ---
APPROVED REPORT Exam: Resting ECG Reason for Exam: lighheaded Patient Location: E HR:70 bpm ECG Measurements Heart Rate 70 AXIS OR 188 P 57 QRSd 89 QRS 37 QT 375 T 34 QTc 406 Conclusion Sinus rhythm...normal P axis, V-rate 60- 99
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
[2021-08-10 07:14] LABS: Abs Immature Grans 0.03 10^3/uL (0.0-0.06); Absolute Basophil Count 0.04 10^3/uL (0.0-0.2); Absolute Lymphocyte Count 1.28 10^3/uL (1.2-3.4); Absolute Neutrophil Count 5.31 10^3/uL (1.2-6.7); Basophils % 0.5; Eosinophils % 1.3; HCT 46.1 % (36.0-46.0); HGB 14.6 g/dL (11.2-15.7); Immature Grans % 0.4; Lymphocytes % 17.2; MCH 28.4 pg (27.0-33.0); MCHC 31.7 % (32.0-36.0); MCV 89.7 fL (80-95); MPV 10.6 fL (8.0-11.0); Monocytes % 9.4; Neutrophils % 71.2; Nucleated RBC 0 %; Platelet Count 235 10^3/uL (130-400); RBC 5.14 10^6/uL (3.93-5.22); RDW 13.8 % (11.7-14.6); RDW-SD 45.3 fL; WBC 7.46 10^3/uL (4.4-10.8)
[2021-08-10 07:30] LABS: Bilirubin Negative (Negative); Blood Trace-intact (Negative); Clarity Clear (Clear); Glucose Negative (Negative); Ketones Negative (Negative); Leukocyte Esterase Negative (Negative); Nitrite Negative (Negative); Urobilinogen 0.2 EU/dL (Up TO 0.2)
[2021-08-10 07:34] LABS: ALT 19 U/L (14-59); AST 19 U/L (15-37); Albumin 3.8 g/dL (3.4-5.0); Alkaline Phosphatase 113 U/L (46-116); Anion Gap 5.8 mmol/L (3-11); BUN 19 mg/dL (7-18); Bilirubin, Total 0.6 mg/dL (0.2-1.0); CO2 29.2 mmol/L (21.0-32.0); Calcium 9.2 mg/dL (8.5-10.1); Chloride 103 mmol/L (98-107); Estimated GFR 52.69 (mL/min/1.73m2); Glucose 129 mg/dL (74-106); NT-proBNP 1672 pg/mL (<300); Sodium 138 mmol/L (136-145); Total Protein 8.2 g/dL (6.4-8.2); Troponin I < 50 ng/L (<or=60)
[2021-08-10 07:41] LABS: PTT Activated 43.1 sec (21.0-27.5); Prothrombin Time 40.3 sec (9.3-11.0)
[2021-08-10 07:45] LABS: INR 4.2 (0.9-1.1)
[2021-08-10 07:50] LABS: D-Dimer 1009 ng/mlFEU (<500)
--- NOTE | 2021-08-10 07:50 | DI.RAD_ITS ---
Exam(s) XR PORTABLE CHEST AP EXAM: XR PORTABLE CHEST AP CLINICAL HISTORY: near syncope TECHNIQUE: 2D digital imaging was performed of the chest. One image was obtained. An AP view was ob tained. COMPARISON: No exams were available for comparison FINDINGS: MEDIASTINUM: Normal. HEART: Normal. PULMONARY VASCULATURE: Normal. LUNGS: Clear. PLEURAL SPACE: No pleural effusion or pneumothorax. BONE:Within normal limits for the patient's age. Degenerative changes are seen in both shoulders. Th ere does appear to be inferior subluxation of the right humeral head. It is not well characterized o n this examination. OTHER FINDINGS:Normal. IMPRESSION: No acute pulmonary findings. DATA REPOSITORY: RADIATION DOSE DELIVERED:
--- NOTE | 2021-08-10 07:51 | DI.VRAD_ITS ---
PROCEDURE INFORMATION: Exam: XR Chest Exam date and time: 08/10/2021 7:32 AM Age: 85 years old Clinical indication: Other: Near syncope TECHNIQUE: Imaging protocol: XR of the chest. Views: 1 view. COMPARISON: No relevant prior studies for comparison. FINDINGS: Lungs: Unremarkable. No consolidation or pulmonary edema. Pleural spaces: Unremarkable. No pleural effusion or pneumothorax. Heart/Mediastinum: Heart size is normal. The thoracic aorta is mildly tortuous. The komal are not enlarged. Bones/joints: There are advanced degenerative changes in both shoulders with the inferior subluxation of the right humeral head, otherwise not well characterized on this single view study. IMPRESSION: No active disease in the chest. Chronic changes as described above. Dictated and Authenticated by: Isela Bhatt MD. Ordering:VU Poe MD
[2021-08-10 07:53] LABS: Bacteria Negative HPF (Negative); C & S Indicated? No; Casts Negative LPF (Negative); Crystals Few Amorphous HPF (Negative); Epithelial Cells Rare HPF (Negative); Mucus Negative (Negative); RBC 0-2 HPF (0-2); WBC Negative HPF (0-5)
--- NOTE | 2021-08-10 08:33 | DI.CT_ITS ---
Exam(s) CT HEAD CERVICAL SPINE WO EXAM: CT HEAD CERVICAL SPINE WO CLINICAL HISTORY: dizziness, headache, r/o acute disease, neck pain s/p fall. TECHNIQUE: Imaging Protocol: Axial computed tomography images with coronal and sagittal reformatted images were created and reviewed COMPARISON: CT HEAD WITHOUT CONTRAST from 02/24/2017 FINDINGS: CT Head: Ventricles and Extra axial spaces: Normal in size and morphology for the patient's age. Hemorrhage: None. Cerebral parenchyma: No definite acute territorial infarct is identified. There are areas of decreas ed attenuation in the white matter most consistent with small vessel ischemic disease. Midline shift: None. Brainstem/Cerebellum: Normal. Calvarium: Normal. Visualized Paranasal sinuses/Mastoids: Clear. Soft Tissues: Unremarkable. CT Cervical Spine: Bones: No acute fracture or subluxation. Degenerative changes are seen in the cervical spine. Soft Tissues: Unremarkable. Lung Apices: Clear. IMPRESSION: 1. No definite acute intracranial process. Small vessel ischemic disease and age appropriate cerebra l atrophy is present. If there is continued clinical concern, an MRI of the brain should be consider ed for further evaluation. 2. No acute fracture or subluxation in the cervical spine. 3. Results of this exam have been verbally communicated with provider. RADIATION DOSE DELIVERED: 1,516.44mGy.cm Total DLP DATA REPOSITORY: All CT scans at this facility are submitted to the National Radiology Data Registry (NRDR) Dose Index Registry (DIR) with the [employer] (ACR). RADIATION OPTIMIZATION: All CT scans at this facility use at least one of these dose optimization te chniques: automated exposure control; mA and/or kV adjustment per patient size (includes targeted exa ms where dose is matched to clinical indication); or iterative reconstruction.
[2021-08-10] MEDS: ACETAMINOPHEN 1,000 MG/100 ML BTL 400 MG IVPB (09:22)
[2021-08-10] MEDS: Normal Saline Flush 10 ML SYR IVP (09:24)
[2021-08-10] MEDS: Normal Saline 500 ML IV (09:25)
--- NOTE | 2021-08-10 09:27 | DI.CT_ITS ---
Exam(s) CT CHEST PE CTA EXAM: CT CHEST PE CTA CLINICAL HISTORY: dizziness, elevated d dimer, r/o PE. TECHNIQUE: Imaging Protocol: Axial CT angiography was performed with multi-slice acquisition and mu lti-planar and/or 3D reconstructions. CONTRAST MATERIAL: Intravenous: Omnipaque 350 Contrast volume:80 mL COMPARISON: No exams were available for comparison FINDINGS: Tracheobronchial tree: Patent where visualized. Pulmonary parenchyma: There is poor inspiration present. There are ground-glass opacities in the tony gs likely reflecting poor inspiratory effort. Infectious/inflammatory process cannot be entirely exc luded. Please correlate clinically. There are areas of atelectasis in the lungs bilaterally. No ar chitectural distortion. Pulmonary Arteries: No evidence of filling defect to suggest pulmonary emboli. Mediastinum and Allyn: No dominant adenopathy or fluid collection. The esophagus is unremarkable. Visualized thyroid gland: Unremarkable. Pleura: No effusion or pneumothorax. Heart: There is mild cardiomegaly. Coronary artery calcifications are present. No pericardial effus ion. Aorta: Thoracic aorta non-dilated. No evidence of dissection. Atherosclerosis. Upper abdomen: Unremarkable. Soft tissues: Unremarkable. Bones: There is a comminuted fracture of the medial aspect of the right clavicle. There is minimal c allus formation about the fracture suggesting this is subacute.No other acute or healing fracture or dislocation is seen. Degenerative changes are seen in the thoracic spine. There is exaggeration of the thoracic kyphosis which is chronic. IMPRESSION: 1. No evidence of pulmonary embolism, thoracic aortic dissection or aneurysm. 2. Subacute comminuted fracture of the medial aspect of the right clavicle. 3. Ground-glass opacities in the lungs bilaterally. This may reflect poor inspiration. Infectious/i nflammatory process cannot be entirely excluded. Please correlate clinically. 4. Results of this exam have been verbally communicated with provider. RADIATION DOSE DELIVERED: 462.13mGy.cm Total DLP DATA REPOSITORY: All CT scans at this facility are submitted to the National Radiology Data Registry (NRDR) Dose Index Registry (DIR) with the [employer] (ACR). RADIATION OPTIMIZATION: All CT scans at this facility use at least one of these dose optimization te chniques: automated exposure control; mA and/or kV adjustment per patient size (includes targeted exa ms where dose is matched to clinical indication); or iterative reconstruction.
[2021-08-10] MEDS: Omnipaque 350 MG/ML 100 ML BTL IJ (09:39)
--- NOTE | 2021-08-10 11:00 | RT.EKG_ITS ---
APPROVED REPORT Exam: Resting ECG Reason for Exam: chest pain Patient Location: E HR:65 bpm ECG Measurements Heart Rate 65 AXIS MA 205 P 38 QRSd 87 QRS 40 QT 404 T 29 QTc 420 Conclusion Sinus rhythm...normal P axis, V-rate 60- 99. Sinus. Normal axis. No STEMI. I have reviewed and interpreted ECG and agree with software generated interpretation.
--- NOTE | 2021-08-10 11:02 | DI.MRI_ITS ---
Exam(s) MR BRAIN WO EXAM: MR BRAIN WO CLINICAL HISTORY: dizziness, headache, r/o acute cva TECHNIQUE: Multiplanar multisequence MRI of the brain was performed. COMPARISON: CT CT HEAD CERVICAL SPINE WO from 08/10/2021 FINDINGS: The examination is limited due to patient motion artifact. VENTRICLES AND EXTRA AXIAL SPACES: Normal in size and morphology for the patient's age. MIDLINE SHIFT: None. CEREBRAL PARENCHYMA: No focus of restricted diffusion to suggest acute infarct. No space-occupying le yayo identified. There are areas of hyperintense signal on the T2 and FLAIR images in the white matte r most consistent with small vessel ischemic disease. HEMORRHAGE: None. BRAINSTEM/CEREBELLUM: Normal. CALVARIUM: Normal. VISUALIZED PARANASAL SINUSES/MASTOIDS:There is mucosal thickening seen in a few ethmoid air cells and the mastoid air cells. [place]: Normal flow void. PITUITARY GLAND: There is a partially empty sella. OTHER FINDINGS: None. IMPRESSION: 1. No acute infarct. 2. Age-related cerebral atrophy and small vessel ischemic disease. 3. Results of this exam have been verbally communicated with provider. DATA REPOSITORY:
[2021-08-10 11:51] LABS: Troponin I < 50 ng/L (<or=60)
--- NOTE | 2021-08-10 13:11 | NUR.NOTE ---
Referral to PCP or dizziness sent and noted to Lizbet Marcelino for f/u within a week.
== END 2021-08-10 13:30 | disposition home or self-care (01) ==
PROVIDERS: Emergency Medicine; Emergency Provider Physician Assistant; PCP Nurse Practitioner
DX: R42 Dizziness and giddiness (principal); R79.1 Abnormal coagulation profile; T45.515A Adverse effect of anticoagulants, initial encounter; Z79.01 Long term (current) use of anticoagulants; R79.89 Other specified abnormal findings of blood chemistry; S42.013A Anterior displaced fracture of sternal end of unspecified clavicle, initial encounter for closed fracture; W19.XXXA Unspecified fall, initial encounter
CPT/HCPCS: 71275; 80053; 93005; 96361; 96365; 99285; 70450; 70551; 71045; 72125; 81003; 81015; 83735; 83880; 84484; 85025; 85379; 85610; 85730; 93010; 99284; J0131; J3490

== ENCOUNTER → 2021-08-26 14:30 | Outpatient (BNVA) | payer MEDICARE, OTHER, SELFPAY | PROVIDERS: PCP Nurse Practitioner; Referring Provider Nurse Practitioner | DX: S42.001A Fracture of unspecified part of right clavicle, initial encounter for closed fracture (principal); W19.XXXA Unspecified fall, initial encounter | CPT/HCPCS: 99213 ==

== ENCOUNTER 2022-06-14 11:12 | Outpatient (CLI) | payer MEDICARE, OTHER, SELFPAY ==
[2022-06-14 12:33] LABS: Abs Immature Grans 0.01 10^3/uL (0.0-0.06); Absolute Basophil Count 0.04 10^3/uL (0.0-0.2); Absolute Eosinophil Count 0.07 10^3/uL (0.0-0.7); Absolute Lymphocyte Count 1.74 10^3/uL (1.2-3.4); Absolute Monocyte Count 0.86 10^3/uL (0.1-0.8); Absolute Neutrophil Count 4.14 10^3/uL (1.2-6.7); Basophils % 0.6; HCT 46.7 % (36.0-46.0); HGB 14.8 g/dL (11.2-15.7); Immature Grans % 0.1; Lymphocytes % 25.4; MCH 28.8 pg (27.0-33.0); MCHC 31.7 % (32.0-36.0); MCV 91 fL (80-95); MPV 11.8 fL (8.0-11.0); Monocytes % 12.5; Neutrophils % 60.4; Platelet Count 231 10^3/uL (130-400); RBC 5.14 10^6/uL (3.93-5.22); RDW 13.6 % (11.7-14.6); WBC 6.86 10^3/uL (4.4-10.8)
[2022-06-14 13:22] LABS: Hemoglobin A1C 5.7 % (<5.7)
[2022-06-14 13:31] LABS: ALT 15 U/L (14-59); AST 27 U/L (15-37); Albumin 4.2 g/dL (3.4-5.0); Alkaline Phosphatase 105 U/L (46-116); Anion Gap 9.4 mmol/L (3-11); BUN 15 mg/dL (7-18); Bilirubin, Total 0.7 mg/dL (0.2-1.0); CO2 29.6 mmol/L (21.0-32.0); CREATININE 1.2 mg/dL (0.55-1.02); Calcium 9.8 mg/dL (8.5-10.1); Calculated LDL 139 mg/dL (<100); Chloride 100 mmol/L (98-107); Cholesterol 229 mg/dL (<200); Estimated GFR 44.08 (mL/min/1.73m2); Glucose 102 mg/dL (74-106); HDL Cholesterol 76 mg/dL (40-60); Potassium 4.2 mmol/L (3.5-5.1); Sodium 139 mmol/L (136-145); TSH (W/Ref FT4) 2.27 uIU/mL (0.36-3.74); Total Protein 8.6 g/dL (6.4-8.2); Triglyceride 71 mg/dL (<150)
== END 2022-06-14 11:13 | disposition home or self-care (01) ==
LOC: LOS 11:12
PROVIDERS: PCP Nurse Practitioner Family; Referring Provider Nurse Practitioner Family; Visit Provider Nurse Practitioner Family
DX: I10 Essential (primary) hypertension (principal); R73.03 Prediabetes; R60.0 Localized edema; R42 Dizziness and giddiness; K21.9 Gastro-esophageal reflux disease without esophagitis; I48.91 Unspecified atrial fibrillation
CPT/HCPCS: 36415; 80053; 80061; 83036; 84443; 85025

== ENCOUNTER 2022-06-24 10:11 | Outpatient (CLI) | payer MEDICARE, OTHER, SELFPAY | END 2022-06-24 10:12 | disposition home or self-care (01) | PROVIDERS: PCP Nurse Practitioner Family; Visit Provider Nurse Practitioner Family | DX: I48.91 Unspecified atrial fibrillation (principal) | CPT/HCPCS: 93246 ==

== ENCOUNTER 2022-07-19 11:20 | Outpatient (CLI) | payer MEDICARE, OTHER, SELFPAY ==
--- NOTE | 2022-07-19 14:58 | CER_ITS ---
Date of service: 07/19/22 Time of Service: 14:58 Cardiac Event Recorder Referring Provider:: Camelia Melgar Indications:: Unspecified atrial flutter Cardiac Event Note: This is a 14-day secured entrance monitor Rhythm throughout was sinus with an average heart rate 60. Minimum was 46, maximum 88 There were very rare isolated ventricular ectopic beats There were occasional atrial premature beats. There were self limited atrial runs. Longest was 18 beats There was no atrial fibrillation, no high grade AV block, no pauses > 3 seconds Patient symptoms did not correlate with any dysrhythmia
== END 2022-07-19 11:21 | disposition home or self-care (01) ==
LOC: CARDOPNVT 11:20
PROVIDERS: PCP Nurse Practitioner Family; Visit Provider Internal Medicine Cardiovascular Disease
DX: I48.92 Unspecified atrial flutter (principal); I47.1 Supraventricular tachycardia
CPT/HCPCS: 93248

== ENCOUNTER 2022-11-23 02:07 | Outpatient (CLI) | payer MEDICARE, OTHER, SELFPAY ==
--- NOTE | 2022-11-23 08:02 | DI.MAMMO_ITS ---
Exam(s) MG MAMMO SCREENING 60 MIN DUR EXAM: MG MAMMO SCREENING 60 MIN DUR CLINICAL HISTORY: screening,z12.39. TECHNIQUE: Bilateral full field digital CC and MLO mammographic images were obtained with 3D tomosyn thesis and utilizing computer aided detection (CAD). COMPARISON: Prior mammograms were reviewed. FINDINGS: There has been no significant change in the appearance and distribution of the fibroglandular tissue. Small benign-appearing lymph node in the right breast is unchanged from prior studies. Small benign-appearing nodule in the left breast is also unchanged from prior studies. There are no new spiculated masses. No malignant-appearing microcalcification groups. There is no significant architectural distortion nor skin thickening-retraction. IMPRESSION: No radiographic evidence of malignancy. Stable benign-appearing bilateral findings. BI-RADS Category 1 - Negative Breast Density - Category B - Scattered areas of fibroglandular density Breast density Category C or D implies that the patient has dense breast tissue. Dense breast tissue can make it harder to find cancer on a mammogram. Dense breast tissue is also associated with an incr eased risk of breast cancer. This information about the result of the mammogram report was provided to the patient to raise their awareness. Use this report when you speak with the patient about their risks for breast cancer, which includes their family history. At that time, you may recommend additional screening tests (Ultrasoun d or MRI) as these tests may add significant information. A negative radiographic report should not delay biopsy if a dominant or clinically suspicious mass is present. Up to ten percent of cancers are not identified on mammography. A negative report may reinforce clinical impression. Adenosis and dense breasts may obscure an underlying neoplasm. False positive reports average 6 to 10%. Patient will receive a letter notifying them of these results.
== END 2022-11-23 02:27 ==
LOC: DI 02:08
PROVIDERS: PCP Nurse Practitioner Family; Visit Provider Nurse Practitioner Family
DX: Z12.31 Encounter for screening mammogram for malignant neoplasm of breast (principal)
CPT/HCPCS: 77063; 77067

== ENCOUNTER → 2023-09-13 13:38 | Outpatient (BNVA) | payer MEDICARE, OTHER, SELFPAY | PROVIDERS: PCP Nurse Practitioner Family; Referring Provider Nurse Practitioner Family; Visit Provider Psychiatry & Neurology Neurology | DX: R55 Syncope and collapse (principal) | CPT/HCPCS: 99215 ==

== ENCOUNTER 2023-09-13 16:08 | Outpatient (REF) | payer MEDICARE, OTHER, SELFPAY ==
[2023-09-13 21:57] LABS: HCT 42.2 % (36.0-46.0); HGB 13.9 g/dL (11.2-15.7); MCHC 32.9 % (32.0-36.0); MCV 88 fL (80-95); MPV 11.7 fL (8.0-11.0); Platelet Count 214 10^3/uL (130-400); RBC 4.79 10^6/uL (3.93-5.22); RDW-SD 45.2 fL; WBC 6.84 10^3/uL (4.4-10.8)
[2023-09-13 22:23] LABS: ALT 26 U/L (14-59); AST 25 U/L (15-37); Albumin 3.8 g/dL (3.4-5.0); Alkaline Phosphatase 85 U/L (46-116); Anion Gap 8.4 mmol/L (3-11); BUN 11 mg/dL (7-18); Bilirubin, Total 0.7 mg/dL (0.2-1.0); CO2 28.6 mmol/L (21.0-32.0); CREATININE 1.1 mg/dL (0.55-1.02); Calcium 9.3 mg/dL (8.5-10.1); Chloride 104 mmol/L (98-107); Estimated GFR 48.63 (mL/min/1.73m2); Glucose 108 mg/dL (74-106); Potassium 3.9 mmol/L (3.5-5.1); Sodium 141 mmol/L (136-145); TSH (W/Ref FT4) 3.02 uIU/mL (0.36-3.74); Total Protein 7.5 g/dL (6.4-8.2)
[2023-09-13 22:43] LABS: Hemoglobin A1C 5.6 % (<5.7)
== END 2023-09-13 16:09 | disposition home or self-care (01) ==
LOC: LBN 16:08
PROVIDERS: PCP Nurse Practitioner Family; Visit Provider Nurse Practitioner Family
DX: R53.83 Other fatigue (principal); R73.03 Prediabetes
CPT/HCPCS: 80053; 85027; 83036; 84443

== ENCOUNTER 2023-12-29 08:02 | Emergency (ER) | payer MEDICARE, OTHER, SELFPAY ==
--- NOTE | 2023-12-29 08:00 | RT.EKG_ITS ---
APPROVED REPORT Exam: Resting ECG Reason for Exam: Syncopal episode Patient Location: E HR:69 bpm ECG Measurements Heart Rate 69 AXIS CA 196 P 53 QRSd 85 QRS 40 QT 374 T 19 QTc 401 Conclusion Sinus rhythm No STEMI Normal axis, no ectopy
[2023-12-29 08:04] VITALS: BP 158/67; PULSE 71; RESP 16; TEMP 36.2; O2SAT 96
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
--- NOTE | 2023-12-29 08:45 | DI.CT_ITS ---
Exam(s) CT HEAD WO EXAM: CT HEAD WO CLINICAL HISTORY: syncope. TECHNIQUE: Imaging Protocol: Axial computed tomography images with coronal and sagittal reformatted images were created and reviewed COMPARISON: CT CT HEAD CERVICAL SPINE WO from 08/10/2021 FINDINGS: There is artifact seen at the base of the skull. This limits evaluation. Ventricles and Extra axial spaces: Normal in size and morphology for the patient's age. Hemorrhage: None. Cerebral parenchyma: There are areas of decreased attenuation in the white matter consistent with chr onic microvascular ischemic disease. No acute territorial infarct is seen. No mass effect is apprec iated. Midline shift: None. Brainstem/Cerebellum: Normal. Calvarium: Normal. Visualized Paranasal sinuses/Mastoids: Clear. Soft Tissues: Unremarkable. IMPRESSION: No acute intracranial process. RADIATION DOSE DELIVERED: Total DLP DATA REPOSITORY: All CT scans at this facility are submitted to the National Radiology Data Registry (NRDR) Dose Index Registry (DIR) with the [employer] (ACR). RADIATION OPTIMIZATION: All CT scans at this facility use at least one of these dose optimization te chniques: automated exposure control; mA and/or kV adjustment per patient size (includes targeted exa ms where dose is matched to clinical indication); or iterative reconstruction.
[2023-12-29 09:34] VITALS: BP 161/59; PULSE 68; RESP 18; O2SAT 96
[2023-12-29 09:42] LABS: Abs Immature Grans 0.01 10^3/uL (0.0-0.06); Absolute Basophil Count 0.03 10^3/uL (0.0-0.2); Absolute Eosinophil Count 0.09 10^3/uL (0.0-0.7); Absolute Lymphocyte Count 1.35 10^3/uL (1.2-3.4); Absolute Monocyte Count 0.66 10^3/uL (0.1-0.8); Absolute Neutrophil Count 4.25 10^3/uL (1.2-6.7); Basophils % 0.5 %; Eosinophils % 1.4 %; HCT 43.5 % (36.0-46.0); HGB 14.4 g/dL (11.2-15.7); Immature Grans % 0.2 %; Lymphocytes % 21.1 %; MCH 30.1 pg (27.0-33.0); MCHC 33.1 % (32.0-36.0); MCV 91 fL (80-95); MPV 10.6 fL (8.0-11.0); Monocytes % 10.3 %; Neutrophils % 66.5 %; Platelet Count 188 10^3/uL (130-400); RBC 4.79 10^6/uL (3.93-5.22); RDW 14.2 % (11.7-14.6); RDW-SD 47.9 fL; WBC 6.39 10^3/uL (4.4-10.8)
[2023-12-29 10:02] LABS: Bilirubin Negative (Negative); Blood Negative (Negative); Clarity Clear (Clear); Glucose Negative (Negative); Ketones Negative (Negative); Leukocyte Esterase Small (Negative); Nitrite Negative (Negative); Specific Gravity 1.015 (1.005-1.025); Urobilinogen 0.2 mg/dL (Up to 0.2); pH 7.5 (5-8)
[2023-12-29 10:16] VITALS: BP 145/64; BP 160/72; PULSE 68; PULSE 72
[2023-12-29 10:19] LABS: INR 2.1 (0.9-1.1); Prothrombin Time 19.5 sec (9.1-11.1)
[2023-12-29 10:25] LABS: Bacteria Moderate HPF (Negative); C & S Indicated? No/Sq. Contamination; Crystals Negative HPF (Negative); Epithelial Cells Moderate HPF (Negative); Mucus Trace (Negative); Other Cells Negative (Negative); RBC Negative HPF (0-2)
[2023-12-29 10:38] LABS: ALT 25 U/L (14-59); AST 25 U/L (15-37); Albumin 3.8 g/dL (3.4-5.0); Alkaline Phosphatase 81 U/L (46-116); Anion Gap 5.3 mmol/L (3-11); BUN 16 mg/dL (7-18); Bilirubin, Total 0.74 mg/dL (0.2-1.0); CO2 32.7 mmol/L (21.0-32.0); CREATININE 1.2 mg/dL (0.55-1.02); Calcium 9.4 mg/dL (8.5-10.1); Chloride 101 mmol/L (98-107); Estimated GFR 43.54 (mL/min/1.73m2); Glucose 117 mg/dL (74-106); Magnesium 2.1 mg/dL (1.8-2.4); Potassium 4.1 mmol/L (3.5-5.1); Sodium 139 mmol/L (136-145); Total Protein 7.9 g/dL (6.4-8.2); Troponin I < 50 ng/L (< or =60)
[2023-12-29 11:29] VITALS: BP 143/97; PULSE 60; TEMP 36.6; O2SAT 95
== END 2023-12-29 11:43 | disposition home or self-care (01) ==
PROVIDERS: Emergency Provider Physician Assistant; PCP Nurse Practitioner Family
DX: R55 Syncope and collapse (principal); R42 Dizziness and giddiness; Z79.01 Long term (current) use of anticoagulants
CPT/HCPCS: 36415; 36416; 80053; 82962; 93005; 99284; 70450; 81003; 81015; 83735; 84443; 84484; 85025; 85610; 93010; 99283

== ENCOUNTER 2024-03-15 14:57 | Emergency (ER) | payer MEDICARE, OTHER, SELFPAY ==
[2024-03-15 14:59] VITALS: BP 124/59; PULSE 89; RESP 18; TEMP 37.3; O2SAT 94
--- OUTSIDE RECORDS SUMMARY | 2024-03-15 15:09 | XMS_ITS | Clinical Summary ---
Author Organization [facility] Address [address] [place] [address] Care Team Providers Care Website Programmer Name Role Phone Sp Valles MD Primary Care Provider [phone] Social History Tobacco Use Types Packs/Day Years Used Date Smoking Tobacco: Never Assessed Interpersonal Safety Answer Date Record ed Physically Hurt Never 12/15/2019 Verbally Threaten Not on file 12/15/2019 Sex and Gender Information Value Date Recorded Sex Assigned at Not on file Gender Identity Not on file Sexual Orientation Not on file Plan of Treatment Health Maintenance Due Date Last Done Comments RSV Immunization ( o r 60+ Years) (1 - 1-dose 60+ series) 1995 Fall Risk Screening 10/28/2000 COVID-19 Vaccine (2022-24 season) 2023 Care Teams Website Programmer Relationship Specialty Start Date End Date Sp Valles MD [facility] [place] [address] PCP - General 05/25/09
--- OUTSIDE RECORDS SUMMARY | 2024-03-15 15:09 | XMS_ITS | Encounter Summary ---
Author Organization [facility] Address [facility] [place] [address] Care Team Providers Care Adhesive Bandage Making Operator Name Role Phone Sp Valles MD Primary Care Provider [phone] Reason for Visit * Reason Comments Rash * Consultation (Routine) - Closed Specialty Diagnoses / Procedures Referred By Contketty t Referred To Contact Dermatology Diagnoses ITCHY, BLISTERING RASH ON TRUNK AND LEFT EAR Sp Valles MD [address] [place] [address] [place] [address] [facility] Dermatology [address] [place] [address] Referral ID Status Reason Start Date Expiration Date V isits Requested Visits Authorized [id number] Closed Consult, Test & Treat [facility] 08/22/2018 08/22/2019 1 1 Encounter Details Date Type Department Care Team (Late st Contact Info) Description 08/31/2018 3:00 PM EDT Office Visit Dermatology at [facility] [address] [place] [id number] Call, Wisam Jeffrey MD [facility] [place] [address] Dermatitis Social History Tobacco Use Types Packs/Day Years Used Date Smoking Tobacco: Never Smokeless Tobacco: Never Sex and Gender Information Value Date Recorded Sex Assigned at Not on file Gender Identity Not on file Sexual Orientation Not on file documented as of this encounter Progress Notes * Wisam Klein - 08/31/2018 3:00 PM EDT Images from the original note were not included. DERMATOLOGY - NEW PATIENT NOTE Date of service: 08/31/2018 Maggie Samuels : 1935, 82 y.o. Chief Complaint: Chief Complaint Patient presents with ??? Rash HPI: Maggie Samuels is a 82 y.o. female referred by Sp Valles with the following concerns: Here today with reports of an itchy back for the last 10 months. Patient endorses intermittent blistering on the back, chest, arms, groin and mouth in the past, but this is subsiding at this time. She has had a biopsy with Dr. Valles in [place] which demonstrated signs of inflammation. Shewas given triamcinolone cream, but is unable to apply it on her back. No new medications Relevant Skin History: - Okay to leave detailed message with results? Yes - Skin cancer (including type): No Biopsy on 08/16/[address] Sp Valles at [facility] [place]: The biopsy while showing some signs of inflammation, was not able to establish a definitive and specific diagnosis Family History: Melanoma: No Relevant Social History: - Lives in [facility] Meds: Current Outpatient Medications Medication Sig Dispense Refill ??? warfarin (COUMADIN) 5 mg Tablet Take 5 mg by mouth daily. ??? atenolol (TENORMIN) 25 mg Tablet Take 25 mg by mouth daily. ??? alendronate (FOSAMAX) 70 mg Tablet Take 70 mg by mouth every 7 days. Take in AM with full glassof water, on an empty stomach. Do not lie down for 30 min. ??? lisinopril-hydrochlorothiazide (PRINZIDE;ZESTORETIC) 10-12.5 mg Tablet Take by mouth daily. ??? MV with Qys-Rkmoxwoh-Tnifvo (CENTRUM SILVER) 0.4-300-250 mg-mcg-mcg Tablet Take by mouth. ??? calcium carbonate 648 mg calcium Tablet Take 650 mg by mouth 3 times daily (with meals). ??? triamcinolone (ARISTOCORT) 0.5 % Cream Apply topically 3 times daily. No current facility-administered medications for this visit. Allergies: No Known Allergies Review of Systems: - General: Feels well. - Skin: No other skin concerns. Examination: - Constitutional: Patient was alert, well-appearing and in no noticeable distress. - Skin: Skin examination of the scalp, face, ears, neck, back, chest, axillae, abdomen, right and left upper extremities, right and left lower extremities, hands, feet, and buttocks was normal with the exception of the findings listed below. Genitalia not examined. - A female nurse was on standby during my examination. Diagnosis/Skin findings/Assessment/Plan: 1. Favor Immunobullous disease - back, superior chest, arms, and left helix and postauricular ear: erythematous and violaceous, slightly scaly plaques consistent with post inflammatory hyperpigmentation with admixed milium cysts located within the plaques. No itntact vesicles today. From our exam, do favor an immunobullous disease although unfortunately no active disease or lesions that would lead to a diagnosis. We spoke about returning to clinic when new vesicles or bullae form vs. Emailing pictures. Patient states that due to the distance of the drive, she would prefer to be seen in [place] if possible. - will forward this note to Dr. Sher's office in [place], gave patient contact info and recommended she call when new lesions arise - otherwise would be happy to see the patient here if she is able to find a ride RTC: PRN, Patient to follow up with [place] dermatology if possible. The following photos were obtained with patient consent: Note initiated by Jossue Ko. I, Jossue Ko, have performed the documentation for this encounter in the presence of and actingas a scribe for Wisam Klein MD. I performed the services which were documented by the scribe, and I agree with the accuracy of the documentation in this encounter. Wisam Klein MD Reviewed and signed by Wisam Klein MD Resident in Dermatology [facility] Patient seen in conjunction with staff clinical information systems director: Rosaline Leyva MD Section of Dermatology [facility] * Rosaline Pérez MD - 08/31/2018 3:00 PM EDT I directly supervised Dr. Klein during this office visit. Dr. Klein presented the history and physical exam to me. I then saw and examined this patient with Dr. Klein. We reviewed the history and pertinent details and I confirmed the physical findings. I agree with the details of the history and physical exam as documented in Dr. Klein's note. Rosaline Pérez MD Staff Physician documented in this encounter Plan of Treatment Not on file documented as of this encounter Visit Diagnoses Diagnosis Dermatitis Contact dermatitis and other eczema, due to unspecified cause documented in this encounter Care Teams Adhesive Bandage Making Operator Relationship Specialty Start Date End Date Sp Valles MD PCP - General 04/06/10 05/14/19 documented as of this encounter
--- OUTSIDE RECORDS SUMMARY | 2024-03-15 15:09 | XMS_ITS | Encounter Summary ---
Author Organization [facility] Address [address] [place] [address] Care Team Providers Care Wood Tank Builder Name Role Phone Chris Valles MD Primary Care Provider [phone] Encounter Details Date Type Department Care Team (Late st Contact Info) Description 07/16/2001 Results Only [facility] - Maple conversion [address] [place] [address] Chris Valles MD [address] [place] [address] [place], [place] [address] Social History Tobacco Use Types Packs/Day Years Used Date Smoking Tobacco: Never Assessed Sex and Gender Information Value Date Recorded Sex Assigned at Not on file Gender Identity Not on file Sexual Orientation Not on file documented as of this encounter Plan of Treatment Not on file documented as of this encounter Procedures Procedure Name Priority Date/Time Associated Diagnosis Comments CYTOPATHOLOGY Routine 07/16/2001 0:00 EST documented in this encounter Results * CYTOPATHOLOGY (07/16/2001 0:00 EST) Pathology Report: CYTOPATHOLOGY REPORT Reports generated via electronic interface contain original data; however they are lacking the format of the original report. Caution should be taken when reading/interpreti ng unformatted reports. Name: ? Dede SAMUELS ? Accession #: ? [id number] : ? 1935 (Age: 65) ??F ?Collect Date: ? 07/16/2001 Location: ? [facility] ? Receive Date: ? 07/17/2001 Provider: ?CHRIS VALLES MD Copy to: ? Specimen/Source: ?ThinPrep Pap Test, Cervix/Endocervix Last Menstrual Period: ? Menstrual/Pregnanc y Status: ? Post Menopausal ? SPECIMEN ADEQUACY ? Unsatisfactory for Evaluation, - insufficient numbers of squamous epithelial cells (less than 10% of expected cellularity) GENERAL CATEGORIZATION ? Specimen processed and examined, but unsatisfactory for evaluation of epithelial abnormality. Recommend repeat Pap test or further follow up, as clincially indicated. ? Document reviewed and electronically signed by: ? SHAHIDA Ballard(ASCP) ? Report Date: ??07/20/2001 13:09 End of Report [facility] 07/16/2001 07/17/2001 Chris Valles MD PATHOLOGY ORDERABLES Performing Organization Address City/State/[facility] Co de Phone Number [facility] [address] [place] [address] documented in this encounter Visit Diagnoses Not on filedocumented in this encounter Care Teams Wood Tank Builder Relationship Specialty Start Date End Date Chris Valles MD [address] [place] [address] [place] [address] PCP - General 05/25/09 documented as of this encounter
--- OUTSIDE RECORDS SUMMARY | 2024-03-15 15:09 | XMS_ITS | Clinical Summary ---
Author Organization [facility] Address [facility] [place] [address] Care Team Providers Care Information Technology Professor Name Role Phone TaliaPeterCamelia Howard ANTHONY Primary Care Provider [phone] Allergies No known active allergies Medications Medication Sig Dispensed Refills Start Date End Date Status triamcinolone (ARISTOCORT) 0.5 % Cream Apply topically 3 times daily. Active warfarin (COUMADIN) 5 mg Tablet Take 5 mg by mouth daily. Active atenolol (TENORMIN) 25 mg Tablet Take 25 mg by mouth daily. Active alendronate (FOSAMAX) 70 mg Tablet Take 70 mg by mouth every 7 days. Take in AM with full glass of water, on an empty stomach. Do not lie down for 30 min. Active lisinopril-hydrochlor othiazide (PRINZIDE;ZESTORETIC) 10-12.5 mg Tablet Take by mouth daily. Active MV with Fza-Tkkjyfyy-Zijopp (CENTRUM SILVER) 0.4-300-250 mg-mcg-mcg Tablet Take by mouth. Act reinier calcium carbonate 648 mg calcium Tablet Take 650 mg by mouth 3 times daily (with meals). Active Social History Tobacco Use Types Packs/Day Years Used Date Smoking Tobacco: Never Smokeless Tobacco: Never Sex and Gender Information Value Date Recorded Sex Assigned at Not on file Gender Identity Not on file Sexual Orientation Not on file Plan of Treatment Health Maintenance Due Date Last Done Comments Tetanus/Diphtheria/Pertussis Vaccines (1 - Tdap) 10/28 Zoster vaccine (1 of 2) 10/28/1985 Advance Directive 10/28/1990 Bone Density Scan 10/28/2000 Pneumoccocal Vaccine: 65+ (1 of 1 - PCV) 10/28/2000 Covid-19 Vaccine (1 - 2022-24 season) 2024 Influenza (Flu) vaccine (1 o f 1 - Influenza standard series) 01/14/2024 Care Teams Information Technology Professor Relationship Specialty Start Date End Date Talia, Camelia Lawrence APRN PCP - General Internal Medicine 07/13/22
--- OUTSIDE RECORDS SUMMARY | 2024-03-15 15:09 | XMS_ITS | Encounter Summary ---
Author Organization [facility] Address [address] [place] [address] Care Team Providers Care Clinical Technologist Name Role Phone Chris Valles MD Primary Care Provider [phone] Encounter Details Date Type Department Care Team (Late st Contact Info) Description 08/10/2018 Results Only [facility] [phone] Chris Valles MD [address] [place] [address] [place], [place] [id number] Social History Tobacco Use Types Packs/Day Years Used Date Smoking Tobacco: Never Assessed Sex and Gender Information Value Date Recorded Sex Assigned at Not on file Gender Identity Not on file Sexual Orientation Not on file documented as of this encounter Plan of Treatment Not on file documented as of this encounter Procedures Procedure Name Priority Date/Time Associated Diagnosis Comments SURGICAL PATHOLOGY Routine 08/10/2018 21 :06 EDT documented in this encounter Results * SURGICAL PATHOLOGY (08/10/2018 21:06 EDT) Pathology Report: SURGICAL PATHOLOGY REPORT Reports generated via electronic interface contain original data; however they are lacking the format of the original report. Caution should be taken when reading/interpreting unformatted reports. Name: ? SATYA SAMUELS ? Accession #: ? [id number] ? : ? 1935 (Age: 82) ??F ? Collect Date: ? 08/10/2018 ? Location: ? [facility] ? Receive Date: ? 08/10/2018 ? Provider: CHRIS VALLES MD Copy to: ? 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 See comment. Comment: The specimen consists of a punch biopsy of skin with a completely denuded epidermis. On some of the sections, there is a small portion of detached epidermis that shows mild degenerative change. Superficially, there is an infiltrate that includes a few eosinophils. Although an intact vesicle is not represented, the features are suggestive of a subepidermal vesiculobullous process. Given the presence of a few eosinophils, bullous pemphigoid is a consideration. If bullous pemphigoid is clinically suspected, submission of a separate biopsy (not in formalin, but in Angel's fixative) for direct immunofluorescence confirmation is recommended. The features are not suggestive of pemphigus. (Dr. Cervantes)/jds Microscopic Description: Sections consist of a punch biopsy of skin to the deep reticular dermis. There is a detached portion of epidermis that has a flattened rete ridge pattern and mild degenerative changes. The dermis has a superficial inflammatory infiltrate that is relatively sparse. The infiltrate includes a few eosinophils in addition to lymphomononuclear cells. There is mild elastosis. (Dr. Cervantes)/jds Document reviewed and electronically signed by: MAUREEN CERVANTES MD Report ??Date: 08/13/2018 15:05 By the signature above, the attending physician certifies that he/she has personally conducted a gross and/or microscopic examination of the described specimens and rendered or confirmed the above diagnosis. Specimen(s) Received: 4.0 mm punch biopsy L upper back Clinical History: Bilateral rash on trunk; ? pemphigus Gross Description: ? Received in formalin labelled with proper patient identification (initials T, L) and left upper back is a punch biopsy of castaneda-pink skin (0.4 cm in diameter and 0.3 cm in thickness). Submitted intact in 1. Dr. Justice 08/11/2018 9:44 AM End of Report [facility] 08/10/2018 21:0 6 EDT 08/10/2018 21:06 EDT Chris Valles MD PATHOLOGY ORDERABLES Performing Organization Address City/State/[facility] Co de Phone Number [facility] [address] [place] [address] documented in this encounter Visit Diagnoses Not on filedocumented in this encounter Care Teams Clinical Technologist Relationship Specialty Start Date End Date Chris Valles MD [address] [place] [address] [place] [address] PCP - General 05/25/09 documented as of this encounter
--- OUTSIDE RECORDS SUMMARY | 2024-03-15 15:09 | XMS_ITS | Encounter Summary ---
Author Organization [facility] Address [address] [place] [address] Care Team Providers Care Clinical Information Systems Director Name Role Phone Sp Valles MD Primary Care Provider [phone] Encounter Details Date Type Department Care Team (Latest Contact Info) Description 08/10/2018 10:56 EDT - 08/10/2018 23:59 EDT Hospital Encounter [address] [address] Unknown, Provider, MD Discharge Disposition: Home or Self Care Social History Tobacco Use Types Packs/Day Years Used Date Smoking Tobacco: Never Assessed Sex and Gender Information Value Date Recorded Sex Assigned at Not on file Gender Identity Not on file Sexual Orientation Not on file documented as of this encounter Discharge Disposition Disposition Code Departure Means Destination Home or Self Correction documented in this encounter Plan of Treatment Not on file documented as of this encounter Visit Diagnoses Not on filedocumented in this encounter Care Teams Clinical Information Systems Director Relationship Specialty Start Date End Date Sp Valles MD [address] [place] [address] [place] [address] PCP - General 05/25/09 documented as of this encounter
--- OUTSIDE RECORDS SUMMARY | 2024-03-15 15:09 | XMS_ITS | Encounter Summary ---
Author Organization [facility] Address [address] [place] [address] Care Team Providers Care Maintenance Supervisor Electrical Name Role Phone Chris Valles MD Primary Care Provider [phone] Encounter Details Date Type Department Care Team (Late st Contact Info) Description 09/21/2010 Results Only [facility] Laboratory [facility] - [facility] [address] [place], [place] [address] [place] [address] [place] [address],[address] [place] [address] Social History Tobacco Use Types Packs/Day Years Used Date Smoking Tobacco: Never Assessed Sex and Gender Information Value Date Recorded Sex Assigned at Not on file Gender Identity Not on file Sexual Orientation Not on file documented as of this encounter Plan of Treatment Not on file documented as of this encounter Procedures Procedure Name Priority Date/Time Associated Diagnosis Comments SURGICAL PATHOLOGY Routine 09/21/2010 0:00 EDT documented in this encounter Results * SURGICAL PATHOLOGY (09/21/2010 0:00 EDT) Pathology Report: SURGICAL PATHOLOGY REPORT ? Reports generated via electronic interface contain original data; ? however they are lacking the format of the original report. ? Caution should be taken when reading/interpreti ng unformatted reports. ? Name: ? GOPALER, L MEGAN ? Accession #: ? [id number] ? : ? 1935 (Age: 74) ??F ? Collect Date: ? 09/21/2010 ? Location: ? [facility] ? Receive Date: ? 09/22/2010 ? Provider: AIMEE CERON MD ? Copy to: CHRIS S OPAL MD ? Final Pathologic Diagnosis: ? Endometrium, biopsy: ? - Mucus and rare degenerative epithelial cells, insufficient cellularity for ? diagnosis. ??See comment. ? Comment: ? Deeper levels were examined. ??(Dr. Garber)/ljn ? Document reviewed and electronically signed by: ? OKSANA BROTHERS MD ? Report ??Date: 09/24/2010 13:02 ? By the signature above, the attending physician certifies that he/she has ? personally conducted a gross and/or microscopic examination of the described ? specimens and rendered or confirmed the above diagnosis. ? Specimen(s) Received: ? Endometrium ? Clinical History: ? Postmenopausal bleeding ? Gross Description: ? Received in formalin labelled [place] and endometrium is a 0.7 x 0.6 x 0.4 cm aggregate of predominantly white, cloudy mucus. ??The specimen is filtered and entirely submitted in a single cassette. ??(Gisselle Peña)/erin ? End of Report ? [facility] 09/21/2010 09/22/2010 9:4 3 EDT Aimee Ceron MD PATHOLOGY ORDERABLES [facility] [address] [place] [address] documented in this encounter Visit Diagnoses Not on filedocumented in this encounter Care Teams Maintenance Supervisor Electrical Relationship Specialty Start Date End Date Chris Valles MD [address] [place] [address] [place] [address] PCP - General 05/25/09 documented as of this encounter
--- OUTSIDE RECORDS SUMMARY | 2024-03-15 15:09 | XMS_ITS | Encounter Summary ---
Author Organization [facility] Address [address] [place] [address] Care Team Providers Care Marble Polisher Name Role Phone Chris Valles MD Primary Care Provider Encounter Details Date Type Department Care Team (Late st Contact Info) Description 08/01/2005 Results Only [facility] - Maple conversion [address] [place] [address] Chris Valles MD [address] [place] [address] [place], [place] [address] Social History Tobacco Use Types Packs/Day Years Used Date Smoking Tobacco: Never Assessed Sex and Gender Information Value Date Recorded Sex Assigned at Not on file Gender Identity Not on file Sexual Orientation Not on file documented as of this encounter Plan of Treatment Not on file documented as of this encounter Procedures Procedure Name Priority Date/Time Associated Diagnosis Comments CYTOPATHOLOGY Routine 08/01/2005 0:00 EST documented in this encounter Results * CYTOPATHOLOGY (08/01/2005 0:00 EST) Pathology Report: CYTOPATHOLOGY REPORT Reports generated via electronic interface contain original data; however they are lacking the format of the original report. Caution should be taken when reading/interpreti ng unformatted reports. Name: ? Dede SAMUELS ? Accession #: ? [id number] : ? 1935 (Age: 69) ??F ?Collect Date: ? 08/01/2005 Location: ? [facility] ? Receive Date: ? 08/03/2005 Provider: ?CHRIS VALLES MD Copy to: ? Specimen/Source: ?ThinPrep Pap Test, Cervix/Endocervix, processed on [employer] ThinPrep Imaging System, with manual evaluation Last Menstrual Period: ? Menstrual/Pregnanc y Status: ? Post Menopausal Other: ? DHPV - HPV testing requested if ASCUS/TOMER on the current ThinPrep Pap test. ? SPECIMEN ADEQUACY ? Satisfactory for Evaluation - assessment of transformation zone component not applicable ( e.g. atrophy, vaginal sample, hysterectomy) - scant squamous epithelial component GENERAL CATEGORIZATION ? Negative for Intraepithelial Lesion or Malignancy ? Document reviewed and electronically signed by: ? SHAHIDA Ramirez(ASCP) ? Report Date: ??08/04/2005 14:05 End of Report [facility] 08/01/2005 08/03/2005 Chris Valles MD PATHOLOGY ORDERABLES [facility] [address] [place] [address] documented in this encounter Visit Diagnoses Not on filedocumented in this encounter Care Teams Marble Polisher Relationship Specialty Start Date End Date Chris Valles MD [address] [place] [address] [place] [address] PCP - General 05/25/09 documented as of this encounter
--- OUTSIDE RECORDS SUMMARY | 2024-03-15 15:09 | XMS_ITS | Encounter Summary ---
Author Organization [facility] Address [facility] [place] [address] Care Team Providers Care Stem Lead Former Name Role Phone Sp Valles MD Primary Care Provider [phone] Encounter Details Date Type Department Care Team (Late st Contact Info) Description 11/10/2010 [facility] [place] [address] Isiah Arzola MD [facility] [place] [address] Social History Tobacco Use Types Packs/Day Years Used Date Smoking Tobacco: Never Assessed Sex and Gender Information Value Date Recorded Sex Assigned at Not on file Gender Identity Not on file Sexual Orientation Not on file documented as of this encounter Plan of Treatment Not on file documented as of this encounter Visit Diagnoses Not on filedocumented in this encounter Care Teams Stem Lead Former Relationship Specialty Start Date End Date Sp Valles MD PCP - General 04/06/10 05/14/19 documented as of this encounter
--- OUTSIDE RECORDS SUMMARY | 2024-03-15 15:09 | XMS_ITS | Encounter Summary ---
Author Organization [facility] Address [address] [place] [address] Care Team Providers Care Composite Bond Worker Name Role Phone Chris Valles MD Primary Care Provider [phone] Encounter Details Date Type Department Care Team (Late st Contact Info) Description 03/03/2003 Results Only [facility] [address] [place] [address] Chris Valles MD [address] [place] [address] [place], [place] [id number] Social History Tobacco Use Types Packs/Day Years Used Date Smoking Tobacco: Never Assessed Sex and Gender Information Value Date Recorded Sex Assigned at Not on file Gender Identity Not on file Sexual Orientation Not on file documented as of this encounter Plan of Treatment Not on file documented as of this encounter Procedures Procedure Name Priority Date/Time Associated Diagnosis Comments CYTOPATHOLOGY Routine 03/03/2003 0:00 EDT documented in this encounter Results * CYTOPATHOLOGY (03/03/2003 0:00 EDT) Pathology Report: CYTOPATHOLOGY REPORT Reports generated via electronic interface contain original data; however they are lacking the format of the original report. Caution should be taken when reading/interpreti ng unformatted reports. Name: ? Dede SAMUELS ? Accession #: ? [id number] : ? 1935 (Age: 67) ??F ?Collect Date: ? 03/03/2003 Location: ? [facility] ? Receive Date: ? 03/05/2003 Provider: ?CHRIS VALLES MD Copy to: ? [...] Document reviewed and electronically signed by: ? Lori Sargent, SCT(ASCP) ? Report Date: ??03/11/2003 11:37 End of Report [facility] 03/03/2003 03/05/2003 Chris Valles MD PATHOLOGY ORDERABLES Performing Organization Address City/State/[facility] Co de Phone Number [facility] [address] [place] [address] documented in this encounter Visit Diagnoses Not on filedocumented in this encounter Care Teams Composite Bond Worker Relationship Specialty Start Date End Date Chris Valles MD [address] [place] [address] [place] [address] PCP - General 05/25/09 documented as of this encounter
--- OUTSIDE RECORDS SUMMARY | 2024-03-15 15:09 | XMS_ITS | Encounter Summary ---
Author Organization Counts Include [facility] Address One [facility] [place] [address] Care Team Providers Care Button Maker Name Role Phone Camelia Melgar APRN Primary Care Provider [phone] Reason for Referral * Consultation (Routine) - Duplicate Referral Specialty Diagnoses / Procedures Referred By Araceli monroe Referred To Contact Dermatology Diagnoses Other specified disorders of the skin and subcutaneous tissue Camelia Melgar APRN [address] [place] [address] [facility] Dermatology [address] [place] [address] Referral ID Status Reason Start Date Expiration Date Visits Requested Visits Authorized [id number] Duplicate Referral Consult, Test & Treat PCP Updated and/or Approved 07/13/2022 07/13/2023 6 6 Encounter Details Date Type Department Care Team (Late st Contact Info) Description 07/13/2022 Transcribe Orders eDH Incoming Referrals [phone] Camelia Melgar APRN [address] [place], [place] [id number] Disease of skin and subcutaneous tissue; Other specified disorders of the skin and subcutaneous tissue Social History Tobacco Use Types Packs/Day Years Used Date Smoking Tobacco: Never Smokeless Tobacco: Never Sex and Gender Information Value Date Recorded Sex Assigned at Not on file Gender Identity Not on file Sexual Orientation Not on file documented as of this encounter Plan of Treatment Scheduled Referrals Name Type Priority Associated Diagnoses Orde r Schedule Referral to Dermatology Outpatient Referral Routine Other specified disorders of the skin and subcutaneous tissue Ordered: 07/13/2022 documented as of this encounter Visit Diagnoses Diagnosis Disease of skin and subcutaneous tissue Unspecified disorder of skin and subcutaneous tissue Other specified disorders of the skin and subcutaneous tissue documented in this encounter Care Teams Button Maker Relationship Specialty Start Date End Date Talia, Camelia Lawrence APRN PCP - General Internal Medicine 07/13/22 documented as of this encounter
--- OUTSIDE RECORDS SUMMARY | 2024-03-15 15:09 | XMS_ITS | Encounter Summary ---
Author Organization [facility] Address One [facility] [place] [address] Care Team Providers Care Health Care Specialist Name Role Phone Camelia Melgar APRN Primary Care Provider [phone] Reason for Referral * Consultation (Routine) - Closed Specialty Diagnoses / Procedures Referred By Araceli monroe Referred To Contact Dermatology Diagnoses Skin abnormality Camelia Melgar APRN [address] [place] [address] [facility] Dermatology [address] [place] [address] Referral ID Status Reason Start Date Expiration Date V isits Requested Visits Authorized [id number] Closed Consult, Test & Treat 07/13/2022 07/13/2023 6 6 Encounter Details Date Type Department Care Team (Late st Contact Info) Description 07/13/2022 Transcribe Orders eDH Incoming Referrals [phone] Camelia Melgar APRN [address] [place], [place] [id number] Skin abnormality Social History Tobacco Use Types Packs/Day Years Used Date Smoking Tobacco: Never Smokeless Tobacco: Never Sex and Gender Information Value Date Recorded Sex Assigned at Not on file Gender Identity Not on file Sexual Orientation Not on file documented as of this encounter Plan of Treatment Scheduled Referrals Name Type Priority Associated Diagnoses Orde r Schedule Referral to Dermatology Outpatient Referral Routine Skin abnormality Ordered: 07/13/2022 documented as of this encounter Visit Diagnoses Diagnosis Skin abnormality Unspecified congenital anomaly of the integument documented in this encounter Care Teams Health Care Specialist Relationship Specialty Start Date End Date Talia, Camelia Lawrence APRN PCP - General Internal Medicine 07/13/22 documented as of this encounter
--- OUTSIDE RECORDS SUMMARY | 2024-03-15 15:09 | XMS_ITS | Encounter Summary ---
Author Organization [facility] Address [address] [place] [address] Care Team Providers Care Manager Field Investigations Name Role Phone Sp Valles MD Primary Care Provider [phone] Encounter Details Date Type Department Care Team (Latest Contact Info) Description 05/25/2009 11:11 EST - 05/25/2009 23:59 EST Hospital Encounter [address] [address] Sp Valles MD [address] [place] [address] [place] [address] Discharge Disposition: Home or Self Care Social History Tobacco Use Types Packs/Day Years Used Date Smoking Tobacco: Never Assessed Sex and Gender Information Value Date Recorded Sex Assigned at Not on file Gender Identity Not on file Sexual Orientation Not on file documented as of this encounter Discharge Disposition Disposition Code Departure Means Destination Home or Self Snf documented in this encounter Plan of Treatment Not on file documented as of this encounter Visit Diagnoses Not on filedocumented in this encounter Care Teams Manager Field Investigations Relationship Specialty Start Date End Date Sp Valles MD [address] [place] [address] [address] [place], [place] [address] PCP - General 05/25/09 documented as of this encounter
--- OUTSIDE RECORDS SUMMARY | 2024-03-15 15:09 | XMS_ITS | Referral Summary ---
Author Organization [facility] Address [address] [place] [address] Care Team Providers Care Wall Scraper Name Role Phone Sp Valles MD Primary Care Provider [phone] Social History Tobacco Use Types Packs/Day Years Used Date Smoking Tobacco: Never Assessed Interpersonal Safety Answer Date Record ed Physically Hurt Never 12/15/2019 Verbally Threaten Not on file 12/15/2019 Sex and Gender Information Value Date Recorded Sex Assigned at Not on file Gender Identity Not on file Sexual Orientation Not on file Plan of Treatment Not on file Care Teams Wall Scraper Relationship Specialty Start Date End Date Sp Valles MD [address] [place] [address] [place] [address] PCP - General 05/25/09
--- NOTE | 2024-03-15 15:15 | DI.RAD_ITS ---
Exam(s) XR FOOT RT COMPLETE EXAM: XR FOOT RT COMPLETE CLINICAL HISTORY: redness, swelling. TECHNIQUE: 2D digital imaging was performed. COMPARISON: No exams were available for comparison FINDINGS: 3 views There is prominent soft tissue swelling along the entire dorsal aspect of the foot. No radiopaque fo reign bodies identified. No evidence of fracture in the foot. No osseous lesions nor erosions and no radiographic evidence of osteomyelitis. Moderate size inferior calcaneal spur is noted IMPRESSION: Prominent soft tissue swelling in the dorsal aspect of the foot continuous from the prominent soft ti ssue swelling in the calf. No radiopaque foreign bodies. No acute osseous findings. No fractures, erosions, nor radiographic evidence of osteomyelitis in the foot. DATA REPOSITORY: RADIATION DOSE DELIVERED:
--- NOTE | 2024-03-15 15:15 | DI.US_ITS ---
Exam(s) US EXTREMITY VENOUS BI EXAM: US EXTREMITY VENOUS BI CLINICAL HISTORY: bilateral leg swelling, right leg red. TECHNIQUE: Bilateral lower extremity venous ultrasound performed using grayscale, color-flow, and sp ectral Doppler analysis. COMPARISON: No exams were available for comparison FINDINGS: The bilateral common femoral, femoral and popliteal veins demonstrate normal compressibility, augment ation, and color Doppler. The posterior tibial veins are patent. Bilateral lower extremity edema. N o drainable collection. IMPRESSION: Right: Negative for DVT Left: Negative for DVT DATA REPOSITORY:
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
--- NOTE | 2024-03-15 16:17 | DI.RAD_ITS ---
Exam(s) XR TIB/FIB RT EXAM: XR TIB/FIB RT CLINICAL HISTORY: swelling, redness. TECHNIQUE: 2D digital imaging was performed. COMPARISON: No exams were available for comparison FINDINGS: Two views-AP and lateral There is abundant soft tissue edema throughout the length of the entire calf. No radiopaque foreign bodies evident. No evidence of fracture of the tibia and fibula. There is significant degenerative changes in all 3 compartments of the right knee. No osseous lesions. No radiographic evidence of osteomyelitis. IMPRESSION: No acute osseous findings in the tibia and fibula. Degenerative changes in the knee. Diffuse soft tissue swelling throughout the calf. No evidence of osteomyelitis. DATA REPOSITORY: RADIATION DOSE DELIVERED:
[2024-03-15] MEDS: Acetaminophen 500 MG TAB (16:41)
[2024-03-15] MEDS: ceFAZolin 2 GM/50 ML BAG IVPB (16:42)
[2024-03-15 17:26] LABS: Lactate 1.9 mmol/L (0.6-1.4)
[2024-03-15 17:27] LABS: Abs Immature Grans 0.05 10^3/uL (0.0-0.06); Absolute Basophil Count 0.02 10^3/uL (0.0-0.2); Absolute Lymphocyte Count 1.03 10^3/uL (1.2-3.4); Absolute Monocyte Count 0.85 10^3/uL (0.1-0.8); Basophils % 0.2 %; HCT 40.1 % (36.0-46.0); HGB 13.6 g/dL (11.2-15.7); Immature Grans % 0.4 %; Lymphocytes % 9.2 %; MCH 30.1 pg (27.0-33.0); MCHC 33.9 % (32.0-36.0); MCV 89 fL (80-95); Monocytes % 7.6 %; Neutrophils % 82.6 %; RBC 4.52 10^6/uL (3.93-5.22); RDW 13.7 % (11.7-14.6); RDW-SD 44.6 fL; WBC 11.24 10^3/uL (4.4-10.8)
[2024-03-15 17:39] LABS: INR 2.1 (0.9-1.1); PTT Activated 36.8 sec (23.6-32.8); Prothrombin Time 19.5 sec (9.1-11.1)
[2024-03-15 17:42] LABS: Absolute Neutrophil Count 9.28 10^3/uL (1.2-6.7)
[2024-03-15 17:47] LABS: ALT 18 U/L (14-59); AST 21 U/L (15-37); Albumin 3.5 g/dL (3.4-5.0); Alkaline Phosphatase 84 U/L (46-116); Anion Gap 9.4 mmol/L (3-11); BUN 16 mg/dL (7-18); Bilirubin, Total 1.36 mg/dL (0.2-1.0); C-Reactive Protein 13.58 mg/dL (<or=0.5); CO2 28.6 mmol/L (21.0-32.0); CREATININE 1.2 mg/dL (0.55-1.02); Calcium 9.6 mg/dL (8.5-10.1); Chloride 100 mmol/L (98-107); Creatine Kinase 60 U/L (26-192); Estimated GFR 43.54 (mL/min/1.73m2); Glucose 103 mg/dL (74-106); Magnesium 1.9 mg/dL (1.8-2.4); Potassium 3.8 mmol/L (3.5-5.1); Sodium 138 mmol/L (136-145)
[2024-03-15 17:50] LABS: Diff Comment PLT Morph Reviewed; RBC Morphology Normal
[2024-03-15 18:18] LABS: Procalcitonin 0.2 ng/mL
--- NOTE | 2024-03-15 18:36 | NUR.NOTE ---
Nursing Note: this RN walked with patient using rolling walker, pateint says she felt really good walking
[2024-03-15 18:55] VITALS: BP 122/51; PULSE 79; TEMP 37; O2SAT 93
[2024-03-15] MEDS: Amoxicillin 875/Clav. 125 TAB PO (18:59)
[2024-03-15] MEDS: Ondansetron O.D.T. 4 MG TABEF PO (19:00)
--- NOTE | 2024-03-20 19:33 | W.ED.FU ---
Date of service: 03/20/24 Time of Service: 19:33 Follow Up Plan: This patient was seen on 03/15 for cellulitis, was sent home on Augmentin and had blood cultures drawn. Negative blood culture resulted 03/20, contacted the patient by phone, who states that her cellulitis is improving. She has a few days left of her antibiotics, states that she will continue to take them until they are gone. Has not had fever, chills, or additional symptoms that have caused her concern. The patient has a scheduled appointment with her outpatient provider on Monday, and had an chance to have all of her questions answered. Ellyn Chau MD
== END 2024-03-15 19:01 | disposition home or self-care (01) ==
PROVIDERS: Emergency Provider Emergency Medicine; PCP Nurse Practitioner Family
DX: L03.115 Cellulitis of right lower limb (principal); R22.41 Localized swelling, mass and lump, right lower limb; I48.91 Unspecified atrial fibrillation; I12.9 Hypertensive chronic kidney disease with stage 1 through stage 4 chronic kidney disease, or unspecified chronic kidney disease; N18.30 Chronic kidney disease, stage 3 unspecified; Z86.718 Personal history of other venous thrombosis and embolism; Z79.01 Long term (current) use of anticoagulants
CPT/HCPCS: 36410; 80053; 82550; 84145; 85652; 87040; 96365; 99285; 73590; 73630; 83605; 83735; 85025; 85610; 85730; 86140; 93970; 99284; J0690